=== PATIENT | female | born 1990 | race Caucasian/White ===

== ENCOUNTER → 2018-10-18 | Outpatient (CLI) | payer OTHER ==
--- NOTE | 2018-10-18 16:48 | CT ---
EXAMINATION TYPE: CT sinus wo con DATE OF EXAM: 10/18/2018 COMPARISON: MRI brain July 18, 2011 HISTORY: Can't breathe through nose with patient changes and headaches per patient. Chronic sinusitis per order. CT DLP: 648 mGycm. Automated Exposure Control for Dose Reduction was Utilized. TECHNIQUE: CT scan of the sinuses is performed without contrast, axial images are obtained, coronal r eformatted images are also reviewed. FINDINGS: There is new moderate to severe lobulated mucosal thickening in the left maxillary sinus. N o suspicious opacification or air-fluid levels in remainder paranasal sinuses is present The ostiome atal complex is patent bilaterally on the coronal images. Nasal septum remains slightly deviated to l eft of midline unchanged from 2012 MRI Visualized portion of mastoid air cells show no abnormal opacification. The globes are intact bilate rally. Visualized portion of brain parenchyma is unremarkable. IMPRESSION: New from prior MRI moderate to severe chronic left maxillary sinus disease. No acute sin usitis is evident.
== END | disposition home or self-care (01) ==
LOC: RADCTMAIN 15:48
PROVIDERS: ATTEND Otolaryngology Facial Plastic Surgery
DX: J32.0 Chronic maxillary sinusitis (principal)
CPT/HCPCS: 70486

== ENCOUNTER 2018-11-15 14:05 | Emergency (ER) | payer OTHER ==
[2018-11-15] MEDS ORDERED: SERTRALINE 50 MG TAB PO STA (14:24)
[2018-11-15] MEDS ORDERED: LORazepam 2 MG/ML INJ IM STA (14:39)
--- NOTE | 2018-11-15 14:47 | ED ---
General Adult HPI - General Chief complaint: Psychiatric Symptoms Stated complaint: Withdrawls, Mental Health Time Seen by Provider: 11/15/18 14:15 Source: patient, RN notes reviewed Mode of arrival: wheelchair Limitations: no limitations - History of Present Illness Initial comments: 27-year-old female with a past psychological history of anxiety presents to the emergency department for a chief complaint of withdrawal. Patient states that she takes Zoloft daily for the past 3 years. States that she thought she had refills at the pharmacy but did not so she was unable to take her Zoloft Thursday and Thursday nights. Patient states the pharmacy did give her 2 on Thursday and now she has a refill waiting at the pharmacy today. However john whitaker thought her symptoms would go away after taking her Zoloft yesterday so presented to the emergency department today. Patient states she feels shaky and very anxious. States she did have some diarrhea yesterday as well. States she is also feeling suicidal but denies a plan. States she does not "want to " but needs this to stop. Patient has no other complaints at this time including shortness of breath, chest pain, abdominal pain, nausea or vomiting, headache, or visual changes. - Related Data Home Medications Medication Instructions Recorded Confirmed Prazosin HCl [Minipress] 2 mg PO HS 11/15/18 11/15/18 QUEtiapine [SEROquel] 25 mg PO HS 11/15/18 11/15/18 Sertraline [Zoloft] 150 mg PO HS 11/15/18 11/15/18 busPIRone HCL 15 mg PO BID 11/15/18 11/15/18 Allergies Allergy/AdvReac Type Severity Reaction Status Date / Time azithromycin Allergy Unknown passed out Verified 11/15/18 14:23 [From Zithromax Z-Eusebio] clarithromycin [From Biaxin] Allergy Unknown passed out Verified 11/15/18 14:23 hydromorphone HCl Allergy Unknown Rash/Hives Verified 11/15/18 14:23 [From Dilaudid] ibuprofen Allergy Unknown Nausea & Verified 11/15/18 14:23 Vomiting Sulfa (Sulfonamide Allergy Unknown Rash/Hives Verified 11/15/18 14:23 Antibiotics) Review of Systems ROS Statement: Those systems with pertinent positive or pertinent negative responses have been documented in the HPI. ROS Other: All systems not noted in ROS Statement are negative. Past Medical History Past Medical History: GERD/Reflux Additional Past Medical History / Comment(s): hernia, IBS, migraines History of Any Multi-Drug Resistant Organisms: None Reported Past Surgical History: Adenoidectomy, Cholecystectomy, Hernia Repair, Hysterecto my Additional Past Surgical History / Comment(s): myringotomy x 2 Past Anesthesia/Blood Transfusion Reactions: Motion Sickness, Postoperative Nausea & Vomiting (PONV) Additional Past Anesthesia/Blood Transfusion Reaction / Comment(s): "freaks out and has anxiety when waking up" Past Psychological History: Anxiety Smoking Status: Current every day smoker Past Alcohol Use History: None Reported Past Drug Use History: Marijuana General Exam Limitations: no limitations General appearance: alert, in no apparent distress Head exam: Present: atraumatic, normocephalic, normal inspection Eye exam: Present: normal appearance, PERRL, EOMI. Absent: scleral icterus, conjunctival injection, periorbital swelling ENT exam: Present: normal exam, mucous membranes moist Neck exam: Present: normal inspection, full ROM. Absent: tenderness, meningismus, lymphadenopathy Respiratory exam: Present: normal lung sounds bilaterally. Absent: respiratory distress, wheezes, rales, rhonchi, stridor Cardiovascular Exam: Present: regular rate, normal rhythm, normal heart sounds. Absent: systolic murmur, diastolic murmur, rubs, gallop, clicks GI/Abdominal exam: Present: soft, normal bowel sounds. Absent: distended, tenderness, guarding, rebound, rigid Neurological exam: Present: alert, oriented X3, CN II-XII intact Psychiatric exam: Present: anxious Course Vital Signs 11/15/18 14:08 Temperature 99.0 F Pulse Rate 95 Respiratory 16 Rate Blood Pressure 106/70 O2 Sat by Pulse 100 Oximetry Medical Decision Making - Medical Decision Making 27-year-old female presents for with tall symptoms from Zoloft including shakiness and diarrhea. Patient states she does have anxiety about this as well. Exam is unremarkable although patient does appear somewhat anxious. Patient was given Ativan, feeling much better at this time. Patient has Zoloft prescribed already at home so does not need a prescription for this. Patient was evaluated by EPS due to suicidal thoughts however as patient denies a plan and states she does not want to EPS does not feel she needs to be admitted. Patient does states she will follow-up with her psychiatrist and counselor tomorrow and continue taking her medications as directed. Patient will return here if she has any worsening symptoms. Denying suicidal thoughts on discharge. - Lab Data Lab Results 11/15/18 11/15/18 Range/Units 16:37 16:37 Urine HCG, Qual Not Detected (Not Detectd) Urine Opiates Screen Not Detected (NotDetected) Ur Oxycodone Screen Not Detected (NotDetected) Urine Methadone Screen Not Detected (NotDetected) Ur Propoxyphene Screen Not Detected (NotDetected) Ur Barbiturates Screen Not Detected (NotDetected) U Tricyclic Antidepress Not Detected (NotDetected) Ur Phencyclidine Scrn Not Detected (NotDetected) Ur Amphetamines Screen Not Detected (NotDetected) U Methamphetamines Scrn Not Detected (NotDetected) U Benzodiazepines Scrn Not Detected (NotDetected) Urine Cocaine Screen Not Detected (NotDetected) U Marijuana (THC) Screen Detected H (NotDetected) Disposition Clinical Impression: Reactive depression (situational) Disposition: HOME SELF-CARE Condition: Good Instructions (If sedation given, give patient instructions): Suicide Prevention (ED) Additional Instructions: Please continue taking your medications as directed. Follow-up with primary care and counselor tomorrow. Return here to the emergency department if you have any worsening symptoms. Is patient prescribed a controlled substance at d/c from ED?: No Referrals: Alondra Hill DO [Primary Care Provider] - 1-2 days Time of Disposition: 18:36
[2018-11-15 17:01] LABS: Amphetamine Screen,Urine Not Detected (NotDetected); Barbiturate Screen,Urine Not Detected (NotDetected); Benzodiazepines Screen,Urine Not Detected (NotDetected); Cocaine Screen,Urine Not Detected (NotDetected); Methadone Screen, Urine Not Detected (NotDetected); Opiate Screen,Urine Not Detected (NotDetected); Oxycodone Screen, Urine Not Detected (NotDetected); Phencyclidine Screen,Urine Not Detected (NotDetected); Tricyclic Antidepressant,Urine Not Detected (NotDetected); Urn Cannabinoid Scrn Detected (NotDetected)
[2018-11-15] MEDS ORDERED: ONDANSETRON ODT 4 MG TAB PO STA (17:09)
[2018-11-15 19:24] VITALS: BP 104/75; PULSE 72; RESP 18; TEMP 98.5
== END 2018-11-15 19:24 | disposition home or self-care (01) ==
LOC: EC 14:05
DX: F43.21 Adjustment disorder with depressed mood (principal); F41.9 Anxiety disorder, unspecified; F17.200 Nicotine dependence, unspecified, uncomplicated; Z79.899 Other long term (current) drug therapy; Z88.1 Allergy status to other antibiotic agents; Z88.2 Allergy status to sulfonamides; Z88.5 Allergy status to narcotic agent; Z88.6 Allergy status to analgesic agent
CPT/HCPCS: 82075; 81025; 80306; 99284; 96372; J2060

== ENCOUNTER 2019-08-24 12:33 | Emergency (ER) | payer OTHER ==
[2019-08-24] MEDS ORDERED: ONDANSETRON 4 MG/2 ML VIAL IVP STA (13:17)
[2019-08-24] MEDS ORDERED: SODIUM CHLORIDE 0.9% 1,000 ML IV STA ×2 (13:17)
[2019-08-24] MEDS ORDERED: KETOROLAC 30 MG/ML 1 ML VIAL IVP STA (13:18)
[2019-08-24] MEDS ORDERED: METOCLOPRAMIDE 5 MG/ML 2 ML VIAL IVP STA (14:00)
[2019-08-24 14:09] LABS: HCT 43.8 % (34.0-46.0); HGB 14.8 gm/dL (11.4-16.0); MCH 29.6 pg (25.0-35.0); MCHC 33.8 g/dL (31.0-37.0); MCV 87.7 fL (80.0-100.0); Mean Platelet Volume 8.3; Platelet Count 202 k/uL (150-450); RBC 4.99 m/uL (3.80-5.40); RDW 12.7 % (11.5-15.5); WBC 7.4 k/uL (3.8-10.6)
[2019-08-24 14:17] LABS: ALT 32 U/L (4-34); AST 43 U/L (14-36); African American GFR (CKD) >90 (>60 ml/min/1.73 sqM); Albumin 4.3 g/dL (3.5-5.0); Alkaline Phosphatase 130 U/L (38-126); Amylase 61 U/L (30-110); Anion Gap 8 mmol/L; Blood Urea Nitrogen 8 mg/dL (7-17); Calcium 9.1 mg/dL (8.4-10.2); Carbon Dioxide 28 mmol/L (22-30); Chloride 104 mmol/L (98-107); Glucose 120 mg/dL (74-99); Non-African American GFR(CKD) >90 (>60 ml/min/1.73 sqM); Sodium 140 mmol/L (137-145); Total Bilirubin 0.6 mg/dL (0.2-1.3); Total Protein 7.8 g/dL (6.3-8.2)
--- NOTE | 2019-08-24 14:18 | ED ---
General Adult HPI - General Chief complaint: Nausea/Vomiting/Diarrhea Stated complaint: vomiting Time Seen by Provider: 08/24/19 12:58 Source: patient, RN notes reviewed, old records reviewed Mode of arrival: ambulatory Limitations: no limitations - History of Present Illness Initial comments: Kailyn a 28-year-old female presents for his pharmacy of lower abdominal pain, nausea and vomiting for the past 3 days. She reports she's been feeling unwell for the past month. Patient states that she has history of total hysterectomy and cholecystectomy. Patient states that she's had no specific fevers or chills. She denies any associated chest pain shortness breath. She reports that the lower abdominal pain will radiate towards her back. She denies dysuria. - Related Data Home Medications Medication Instructions Recorded Confirmed Prazosin HCl [Minipress] 2 mg PO HS 11/15/18 11/15/18 QUEtiapine [SEROquel] 25 mg PO HS 11/15/18 11/15/18 Sertraline [Zoloft] 150 mg PO HS 11/15/18 11/15/18 busPIRone HCL 15 mg PO BID 11/15/18 11/15/18 Previous Rx's Medication Instructions Recorded Ketorolac [Toradol] 10 mg PO Q6HR #12 tab 08/24/19 Metoclopramide [Reglan] 10 mg PO ACHS #12 tab 08/24/19 Allergies Allergy/AdvReac Type Severity Reaction Status Date / Time azithromycin Allergy Unknown passed out Verified 08/24/19 12:52 [From Zithromax Z-Eusebio] clarithromycin [From Biaxin] Allergy Unknown passed out Verified 08/24/19 12:52 hydromorphone HCl Allergy Unknown Rash/Hives Verified 08/24/19 12:52 [From Dilaudid] ibuprofen Allergy Unknown Nausea & Verified 08/24/19 12:52 Vomiting Sulfa (Sulfonamide Allergy Unknown Rash/Hives Verified 08/24/19 12:52 Antibiotics) Review of Systems ROS Statement: Those systems with pertinent positive or pertinent negative responses have been documented in the HPI. ROS Other: All systems not noted in ROS Statement are negative. Past Medical History Past Medical History: GERD/Reflux Additional Past Medical History / Comment(s): hernia, IBS, migraines History of Any Multi-Drug Resistant Organisms: None Reported Past Surgical History: Adenoidectomy, Cholecystectomy, Hernia Repair, H ysterectomy Additional Past Surgical History / Comment(s): myringotomy x 2 Past Anesthesia/Blood Transfusion Reactions: Motion Sickness, Postoperative Nausea & Vomiting (PONV) Additional Past Anesthesia/Blood Transfusion Reaction / Comment(s): "freaks out and has anxiety when waking up" Past Psychological History: Anxiety Smoking Status: Current every day smoker Past Alcohol Use History: None Reported Past Drug Use History: Marijuana General Exam - General Exam Comments Initial Comments: 28-year-old female. Alert and oriented. Mild to moderate discomfort. Nauseous. Limitations: no limitations General appearance: alert, in no apparent distress Head exam: Present: atraumatic, normocephalic, normal inspection Eye exam: Present: normal appearance, PERRL, EOMI. Absent: scleral icterus, conjunctival injection, periorbital swelling ENT exam: Present: normal exam, mucous membranes moist Neck exam: Present: normal inspection Respiratory exam: Present: normal lung sounds bilaterally. Absent: respiratory distress, wheezes, rales, rhonchi, stridor Cardiovascular Exam: Present: regular rate, normal rhythm, normal heart sounds. Absent: systolic murmur, diastolic murmur, rubs, gallop, clicks GI/Abdominal exam: Present: soft, tenderness (Lower abdominal tenderness), normal bowel sounds. Absent: distended, guarding, rebound, rigid Extremities exam: Present: normal inspection, full ROM, normal capillary refill. Absent: tenderness, pedal edema, joint swelling, calf tenderness Back exam: Present: normal inspection Neurological exam: Present: alert, oriented X3, CN II-XII intact Psychiatric exam: Present: normal affect, normal mood Skin exam: Present: warm, dry, intact, normal color. Absent: rash Course Vital Signs 08/24/19 08/24/19 12:49 14:50 Temperature 98.9 F 98.4 F Pulse Rate 98 79 Respiratory 20 16 Rate Blood Pressure 102/70 96/54 O2 Sat by Pulse 99 99 Oximetry Medical Decision Making - Medical Decision Making 28-year-old female presenting with lower abdominal pain. Patient comes in the rain towards her back. This time labs are reviewed. She had some mild trace injury. Blood work was otherwise unremarkable. CT abdomen and pelvis was completed and shows no sign of retained or obstructing stone. She does have bilateral renal stones. There is also some evidence of mild colitis. Discussed computed tomography scan findings and blood work Patient. Discussed she could possibly pass a stone at this time. I discussed Patient should've clear liquid diet, taking Motrin Tylenol for pain. Discussed return parameters and close PCP follow-up. All questions were answered. - Lab Data Result diagrams: 08/24/19 13:53 08/24/19 13:53 Lab Results 08/24/19 08/24/19 08/24/19 Range/Units 13:53 13:53 13:53 WBC 7.4 (3.8-10.6) k/uL RBC 4.99 (3.80-5.40) m/uL Hgb 14.8 (11.4-16.0) gm/dL Hct 43.8 (34.0-46.0) % MCV 87.7 (80.0-100.0) fL MCH 29.6 (25.0-35.0) pg MCHC 33.8 (31.0-37.0) g/dL RDW 12.7 (11.5-15.5) % Plt Count 202 (150-450) k/uL Neutrophils % (Manual) 64 % Lymphocytes % (Manual) 23 % Monocytes % (Manual) 10 % Eosinophils % (Manual) 3 % Neutrophils # (Manual) 4.74 (1.3-7.7) k/uL Lymphocytes # (Manual) 1.70 (1.0-4.8) k/uL Monocytes # (Manual) 0.74 (0-1.0) k/uL Eosinophils # (Manual) 0.22 (0-0.7) k/uL Nucleated RBCs 0 (0-0) /100 WBC Manual Slide Review Performed RBC Morphology Normal Sodium 140 (137-145) mmol/L Potassium 4.0 (3.5-5.1) mmol/L Chloride 104 (98-107) mmol/L Carbon Dioxide 28 (22-30) mmol/L Anion Gap 8 mmol/L BUN 8 (7-17) mg/dL Creatinine 0.73 (0.52-1.04) mg/dL Est GFR (CKD-EPI)AfAm >90 (>60 ml/min/1.73 sqM) Est GFR (CKD-EPI)NonAf >90 (>60 ml/min/1.73 sqM) Glucose 120 H (74-99) mg/dL Calcium 9.1 (8.4-10.2) mg/dL Total Bilirubin 0.6 (0.2-1.3) mg/dL AST 43 H (14-36) U/L ALT 32 (4-34) U/L Alkaline Phosphatase 130 H (38-126) U/L Total Protein 7.8 (6.3-8.2) g/dL Albumin 4.3 (3.5-5.0) g/dL Amylase 61 (30-110) U/L Lipase 87 (23-300) U/L Urine Color Urine Appearance (Clear) Urine pH (5.0-8.0) Ur Specific [place] (1.001-1.035) Urine Protein (Negative) Ur Protein Confirm Urine Glucose (UA) (Negative) Urine Ketones (Negative) Urine Blood (Negative) Urine Nitrite (Negative) Urine Bilirubin (Negative) Ur Bilirubin Confirm Urine Urobilinogen (<2.0) mg/dL Ur Leukocyte Esterase (Negative) Amorphous Sediment (None) /hpf Urine Mucus (None) /hpf Influenza Type A RNA Not Detected (Not Detectd) Influenza Type B (PCR) Not Detected (Not Detectd) 08/24/19 Range/Units 14:59 WBC (3.8-10.6) k/uL RBC (3.80-5.40) m/uL Hgb (11.4-16.0) gm/dL Hct (34.0-46.0) % MCV (80.0-100.0) fL MCH (25.0-35.0) pg MCHC (31.0-37.0) g/dL RDW (11.5-15.5) % Plt Count (150-450) k/uL Neutrophils % (Manual) % Lymphocytes % (Manual) % Monocytes % (Manual) % Eosinophils % (Manual) % Neutrophils # (Manual) (1.3-7.7) k/uL Lymphocytes # (Manual) (1.0-4.8) k/uL Monocytes # (Manual) (0-1.0) k/uL Eosinophils # (Manual) (0-0.7) k/uL Nucleated RBCs (0-0) /100 WBC Manual Slide Review RBC Morphology Sodium (137-145) mmol/L Potassium (3.5-5.1) mmol/L Chloride (98-107) mmol/L Carbon Dioxide (22-30) mmol/L Anion Gap mmol/L BUN (7-17) mg/dL Creatinine (0.52-1.04) mg/dL Est GFR (CKD-EPI)AfAm (>60 ml/min/1.73 sqM) Est GFR (CKD-EPI)NonAf (>60 ml/min/1.73 sqM) Glucose (74-99) mg/dL Calcium (8.4-10.2) mg/dL Total Bilirubin (0.2-1.3) mg/dL AST (14-36) U/L ALT (4-34) U/L Alkaline Phosphatase (38-126) U/L Total Protein (6.3-8.2) g/dL Albumin (3.5-5.0) g/dL Amylase (30-110) U/L Lipase (23-300) U/L Urine Color Yellow Urine Appearance Cloudy H (Clear) Urine pH 6.0 (5.0-8.0) Ur Specific [place] 1.025 (1.001-1.035) Urine Protein 1+ H (Negative) Ur Protein Confirm [employer]FFER Urine Glucose (UA) Negative (Negative) Urine Ketones Negative (Negative) Urine Blood Trace H (Negative) Urine Nitrite Negative (Negative) Urine Bilirubin 1+ H (Negative) Ur Bilirubin Confirm [employer] Urine Urobilinogen 0.2 (<2.0) mg/dL Ur Leukocyte Esterase Negative (Negative) Amorphous Sediment Moderate H (None) /hpf Urine Mucus Many H (None) /hpf Influenza Type A RNA (Not Detectd) Influenza Type B (PCR) (Not Detectd) - Radiology Data Radiology results: report reviewed CT showed nonobstructing bilateral renal colliculi. Mild inflammatory changes of the ascending colon that could relate to an mild nonspecific colitis. Disposition Clinical Impression: Colitis, Renal stone Disposition: HOME SELF-CARE Condition: Good Instructions (If sedation given, give patient instructions): Colitis (ED), Kidney Stones (ED) Additional Instructions: Please use medication as discussed. Please follow up with family doctor if symptoms have not improved over the next two days. Please return to the emergency room if your symptoms increase or worsen or for any other concerns. Prescriptions: Metoclopramide [Reglan] 10 mg PO ACHS #12 tab Ketorolac [Toradol] 10 mg PO Q6HR #12 tab Is patient prescribed a controlled substance at d/c from ED?: No Referrals: Alondra Hill DO [Primary Care Provider] - 1-2 days Time of Disposition: 17:14
--- NOTE | 2019-08-24 14:27 | XR ---
KUB HISTORY: Nausea and vomiting and low back pain Frontal KUB submitted and correlated to prior exam 11/07/2010 Surgical clips are present in the right upper quadrant and there is a clip in the left pelvis. Lung b ases are clear. There is no evident bowel obstruction or pneumoperitoneum. No pathologic calcificatio n, suspect phleboliths in the pelvis. IMPRESSION: Nonobstructive bowel gas pattern.
[2019-08-24 14:51] VITALS: RESP 16
[2019-08-24 15:28] LABS: Eosinophils # (M) 0.22 k/uL (0-0.7); Monocytes # (M) 0.74 k/uL (0-1.0); Neutrophils # (M) 4.74 k/uL (1.3-7.7); Neutrophils % (M) 64 %; Nucleated Red Blood Cells 0 /100 WBC (0-0); Total Cells Counted 100
[2019-08-24 15:53] LABS: Amorphous Sediment,Urine Moderate /hpf; Mucus,Urine Many /hpf
[2019-08-24 15:57] LABS: Appearance,Urine Cloudy (Clear); Bilirubin,Urine 1+ (Negative); Color,Urine Yellow; Glucose,Urine (UA) Negative (Negative); Ketones,Urine Negative (Negative); Protein,Urine 1+ (Negative); Specific Gravity,Urine 1.025 (1.001-1.035)
[2019-08-24 15:58] LABS: Blood,Urine Trace (Negative); Leukocyte Esterase,Urine Negative (Negative); Nitrite,Urine Negative (Negative); Urobilinogen,Urine 0.2 mg/dL (<2.0)
[2019-08-24] MEDS ORDERED: MORPHINE SULFATE 4 MG/ML SYRINGE IVP STA (16:09)
[2019-08-24] MEDS: SODIUM CHLORIDE 0.9% 1,000 ML IV SCH ×2 (16:21→17:38)
--- NOTE | 2019-08-24 16:52 | CT ---
EXAMINATION TYPE: CT abdomen pelvis wo con DATE OF EXAM: 08/24/2019 COMPARISON: None HISTORY: Nausea, vomiting, right flank pain CT DLP: 452.7 mGycm Automated exposure control for dose reduction was used. Multiple axial sections were obtained from the diaphragm to the floor the pelvis without contrast. Lung bases are clear of infiltrate. There is no pleural effusion. There is mild subsegmental atelecta sis left lung base. Heart size is normal. Spleen is top normal in size and measures 13 cm. Liver shows no focal defect. There are clips from ch olecystectomy. Stomach appears normal. There is no pancreatic mass. There is no adrenal mass. Kidneys have normal size. There is 2 mm calculus lower pole right kidney. T here are 1 mm calculi in the left kidney. The ureters are not dilated. There is no definite hydroneph rosis. There is no retroperitoneal adenopathy. Bladder distends smoothly. There is no free fluid in t he pelvis. There is no inguinal hernia. There is hysterectomy. There is surgical clip in the right lo wer quadrant is probably from appendectomy. Appendix is not seen. There is minimal fat stranding around the posterior aspect of the ascending colon near the hepatic fl exure. There is mild wall thickening of the ascending colon. Cecum appears normal. There is no eviden ce of a bowel obstruction. There is no evidence of free air. There is no ascites. Lumbar vertebra hav e normal spacing and alignment. Bony pelvis is intact. IMPRESSION: Nonobstructing bilateral renal calculi. Mild inflammatory changes of the ascending colon that could r elate to some mild nonspecific colitis.
[2019-08-24 17:45] VITALS: BP 117/70; PULSE 75; TEMP 98.6
== END 2019-08-24 17:45 | disposition home or self-care (01) ==
LOC: EC 12:33
DX: N20.0 Calculus of kidney (principal); K52.9 Noninfective gastroenteritis and colitis, unspecified; F41.9 Anxiety disorder, unspecified; F17.200 Nicotine dependence, unspecified, uncomplicated; Z79.899 Other long term (current) drug therapy; Z88.1 Allergy status to other antibiotic agents; Z88.2 Allergy status to sulfonamides; Z88.5 Allergy status to narcotic agent; Z88.6 Allergy status to analgesic agent; Z90.49 Acquired absence of other specified parts of digestive tract; Z90.89 Acquired absence of other organs
CPT/HCPCS: 36415; 80053; 82150; 83690; 85025; 81001; 87502; 74018; 74176; 99285; 96374; 96375 ×2; 96361 ×2; J2270; J2765; J1885

== ENCOUNTER 2019-08-26 10:54 | Observation (INO) | payer OTHER ==
[2019-08-26] MEDS ORDERED: MORPHINE SULFATE 4 MG/ML SYRINGE IV STA (11:21)
[2019-08-26] MEDS ORDERED: ONDANSETRON 4 MG/2 ML VIAL IVP STA (11:21)
[2019-08-26] MEDS ORDERED: SODIUM CHLORIDE 0.9% 1,000 ML IV STA (11:21)
[2019-08-26] MEDS ORDERED: diphenhydrAMINE 50 MG/ML 1 ML VIAL IVP STA (11:22)
--- NOTE | 2019-08-26 11:44 | ED ---
General Adult HPI - General Chief complaint: Nausea/Vomiting/Diarrhea Stated complaint: vomiting, colitis Time Seen by Provider: 08/26/19 11:14 Source: patient, RN notes reviewed, old records reviewed Mode of arrival: ambulatory Limitations: no limitations - History of Present Illness Initial comments: 38-year-old female presenting for evaluation of abdominal cramping, nausea vomiting and diarrhea. Symptoms have been present for almost 3 days. She was seen in the emergency department 2 days ago with similar symptoms. Her symptoms have failed to improve with symptomatic treatment at home. She's had persistent vomiting and several episodes daily as well as diarrhea. No bloody needed to vomit or diarrhea. She's had subjective fever and chills as well as cramping abdominal pain and pain in the epigastrium and right upper quadrant. She has p revious surgical history of cholecystectomy, and hysterectomy. - Related Data Home Medications Medication Instructions Recorded Confirmed Prazosin HCl [Minipress] 2 mg PO HS 11/15/18 11/15/18 QUEtiapine [SEROquel] 25 mg PO HS 11/15/18 11/15/18 Sertraline [Zoloft] 150 mg PO HS 11/15/18 11/15/18 busPIRone HCL 15 mg PO BID 11/15/18 11/15/18 Previous Rx's Medication Instructions Recorded Ketorolac [Toradol] 10 mg PO Q6HR #12 tab 08/24/19 Metoclopramide [Reglan] 10 mg PO ACHS #12 tab 08/24/19 Allergies Allergy/AdvReac Type Severity Reaction Status Date / Time azithromycin Allergy Unknown passed out Verified 08/26/19 11:05 [From Zithromax Z-Eusebio] clarithromycin [From Biaxin] Allergy Unknown passed out Verified 08/26/19 11:05 hydromorphone HCl Allergy Unknown Rash/Hives Verified 08/26/19 11:05 [From Dilaudid] ibuprofen Allergy Unknown Nausea & Verified 08/26/19 11:05 Vomiting Sulfa (Sulfonamide Allergy Unknown Rash/Hives Verified 08/26/19 11:05 Antibiotics) Review of Systems ROS Statement: Those systems with pertinent positive or pertinent negative responses have been documented in the HPI. ROS Other: All systems not noted in ROS Statement are negative. Past Medical History Past Medical History: GERD/Reflux Additional Past Medical History / Comment(s): hernia, IBS, migraines History of Any Multi-Drug Resistant Organisms: None Reported Past Surgical History: Adenoidectomy, Cholecystectomy, Hernia Repair, Hysterectomy Additional Past Surgical History / Comment(s): myringotomy x 2 Past Anesthesia/Blood Transfusion Reactions: Motion Sickness, Postoperative Nausea & Vomiting (PONV) Additional Past Anesthesia/Blood Transfusion Reaction / Comment(s): "freaks out and has anxiety when waking up" Past Psychological History: Anxiety Smoking Status: Current every day smoker Past Alcohol Use History: None Reported Past Drug Use History: Marijuana General Exam Limitations: no limitations General appearance: alert, in no apparent distress Head exam: Present: atraumatic, normocephalic Eye exam: Present: normal appearance, PERRL ENT exam: Present: normal exam Neck exam: Present: normal inspection. Absent: tenderness, meningismus Respiratory exam: Present: normal lung sounds bilaterally. Absent: respiratory distress, wheezes Cardiovascular Exam: Present: regular rate, normal rhythm GI/Abdominal exam: Present: soft, tenderness (Minimal right upper quadrant tenderness). Absent: distended, guarding, rebound Extremities exam: Present: normal inspection, normal capillary refill. Absent: pedal edema, calf tenderness Neurological exam: Present: alert, oriented X3, CN II-XII intact. Absent: motor sensory deficit Psychiatric exam: Present: normal affect, normal mood Skin exam: Present: warm, dry, intact. Absent: cyanosis, diaphoretic Course Vital Signs 08/26/19 11:05 Temperature 99.4 F Pulse Rate 88 Respiratory 18 Rate Blood Pressure 96/68 O2 Sat by Pulse 99 Oximetry Medical Decision Making - Medical Decision Making Patient continues to be symptomatic, nausea vomiting with diarrhea while the emergency department. She is 4+ ketones on urinalysis consistent with dehydration. She has transaminitis and elevation in alkaline phosphatase. Her common bile duct is within normal limits. She has an x-ray which is negative for obstruction or intraperitoneal free air. She will be admitted for IV hydration secondary control. Case is discussed with the admitting physician Dr. Faulkner. - Lab Data Result diagrams: 08/26/19 12:00 08/26/19 12:00 Lab Results 08/26/19 08/26/19 08/26/19 Range/Units 12:00 12:00 14:34 WBC 6.6 (3.8-10.6) k/uL RBC 4.44 (3.80-5.40) m/uL Hgb 13.3 (11.4-16.0) gm/dL Hct 38.3 (34.0-46.0) % MCV 86.3 (80.0-100.0) fL MCH 30.0 (25.0-35.0) pg MCHC 34.7 (31.0-37.0) g/dL RDW 12.7 (11.5-15.5) % Plt Count 189 (150-450) k/uL Neutrophils % (Manual) 57 % Band Neutrophils % 6 % Lymphocytes % (Manual) 24 % Monocytes % (Manual) 11 % Eosinophils % (Manual) 2 % Neutrophils # (Manual) 4.10 (1.3-7.7) k/uL Lymphocytes # (Manual) 1.58 (1.0-4.8) k/uL Monocytes # (Manual) 0.73 (0-1.0) k/uL Eosinophils # (Manual) 0.13 (0-0.7) k/uL Nucleated RBCs 0 (0-0) /100 WBC Manual Slide Review Performed Sodium 137 (137-145) mmol/L Potassium 3.5 (3.5-5.1) mmol/L Chloride 105 (98-107) mmol/L Carbon Dioxide 21 L (22-30) mmol/L Anion Gap 11 mmol/L BUN 9 (7-17) mg/dL Creatinine 0.65 (0.52-1.04) mg/dL Est GFR (CKD-EPI)AfAm >90 (>60 ml/min/1.73 sqM) Est GFR (CKD-EPI)NonAf >90 (>60 ml/min/1.73 sqM) Glucose 101 H (74-99) mg/dL Calcium 8.6 (8.4-10.2) mg/dL Total Bilirubin 1.0 (0.2-1.3) mg/dL AST 69 H (14-36) U/L ALT 83 H (4-34) U/L Alkaline Phosphatase 188 H (38-126) U/L Total Protein 7.1 (6.3-8.2) g/dL Albumin 3.8 (3.5-5.0) g/dL Lipase 82 (23-300) U/L Urine Color Yellow Urine Appearance Clear (Clear) Urine pH 6.0 (5.0-8.0) Ur Specific Elsie 1.021 (1.001-1.035) Urine Protein Trace H (Negative) Urine Glucose (UA) Negative (Negative) Urine Ketones 4+ H (Negative) Urine Blood Small H (Negative) Urine Nitrite Negative (Negative) Urine Bilirubin Negative (Negative) Urine Urobilinogen 3.0 (<2.0) mg/dL Ur Leukocyte Esterase Negative (Negative) Urine RBC 3 (0-5) /hpf Urine WBC 1 (0-5) /hpf Ur Squamous Epith Cells 1 (0-4) /hpf Urine Bacteria Rare H (None) /hpf Urine Mucus Many H (None) /hpf Hepatitis A IgM Ab 08/26/19 Range/Units 14:44 WBC (3.8-10.6) k/uL RBC (3.80-5.40) m/uL Hgb (11.4-16.0) gm/dL Hct (34.0-46.0) % MCV (80.0-100.0) fL MCH (25.0-35.0) pg MCHC (31.0-37.0) g/dL RDW (11.5-15.5) % Plt Count (150-450) k/uL Neutrophils % (Manual) % Band Neutrophils % % Lymphocytes % (Manual) % Monocytes % (Manual) % Eosinophils % (Manual) % Neutrophils # (Manual) (1.3-7.7) k/uL Lymphocytes # (Manual) (1.0-4.8) k/uL Monocytes # (Manual) (0-1.0) k/uL Eosinophils # (Manual) (0-0.7) k/uL Nucleated RBCs (0-0) /100 WBC Manual Slide Review Sodium (137-145) mmol/L Potassium (3.5-5.1) mmol/L Chloride (98-107) mmol/L Carbon Dioxide (22-30) mmol/L Anion Gap mmol/L BUN (7-17) mg/dL Creatinine (0.52-1.04) mg/dL Est GFR (CKD-EPI)AfAm (>60 ml/min/1.73 sqM) Est GFR (CKD-EPI)NonAf (>60 ml/min/1.73 sqM) Glucose (74-99) mg/dL Calcium (8.4-10.2) mg/dL Total Bilirubin (0.2-1.3) mg/dL AST (14-36) U/L ALT (4-34) U/L Alkaline Phosphatase (38-126) U/L Total Protein (6.3-8.2) g/dL Albumin (3.5-5.0) g/dL Lipase (23-300) U/L Urine Color Urine Appearance (Clear) Urine pH (5.0-8.0) Ur Specific Elsie (1.001-1.035) Urine Protein (Negative) Urine Glucose (UA) (Negative) Urine Ketones (Negative) Urine Blood (Negative) Urine Nitrite (Negative) Urine Bilirubin (Negative) Urine Urobilinogen (<2.0) mg/dL Ur Leukocyte Esterase (Negative) Urine RBC (0-5) /hpf Urine WBC (0-5) /hpf Ur Squamous Epith Cells (0-4) /hpf Urine Bacteria (None) /hpf Urine Mucus (None) /hpf Hepatitis A IgM Ab NEGATIVE Disposition Clinical Impression: Dehydration, Nausea vomiting and diarrhea Disposition: ADMITTED IP TO THIS [facility] Condition: Stable Is patient prescribed a controlled substance at d/c from ED?: No Referrals: Alondra Hill DO [Primary Care Provider] - 1-2 days Decision to Admit Reason: Admit from EC Decision Date: 08/26/19 Decision Time: 15:54
--- NOTE | 2019-08-26 12:19 | XR ---
KUB HISTORY: Pain, nausea and vomiting and diarrhea For a KUB submitted on 2 images and correlated prior KUB dated 08/24/2019, CT 08/24/2019 Surgical clips are present right upper quadrant. There is no evident bowel obstruction or pneumoperit oneum. Slight spinal curvature is present. Surgical clips again noted in the pelvis. Patient's known renal calculi not seen on plain film. IMPRESSION: No acute abnormality.
[2019-08-26 12:20] LABS: HCT 38.3 % (34.0-46.0); HGB 13.3 gm/dL (11.4-16.0); MCHC 34.7 g/dL (31.0-37.0); MCV 86.3 fL (80.0-100.0); Mean Platelet Volume 8.3; Platelet Count 189 k/uL (150-450); RBC 4.44 m/uL (3.80-5.40); RDW 12.7 % (11.5-15.5); WBC 6.6 k/uL (3.8-10.6)
[2019-08-26 12:27] LABS: ALT 83 U/L (4-34); AST 69 U/L (14-36); African American GFR (CKD) >90 (>60 ml/min/1.73 sqM); Albumin 3.8 g/dL (3.5-5.0); Alkaline Phosphatase 188 U/L (38-126); Anion Gap 11 mmol/L; Blood Urea Nitrogen 9 mg/dL (7-17); Calcium 8.6 mg/dL (8.4-10.2); Carbon Dioxide 21 mmol/L (22-30); Chloride 105 mmol/L (98-107); Glucose 101 mg/dL (74-99); Non-African American GFR(CKD) >90 (>60 ml/min/1.73 sqM); Potassium 3.5 mmol/L (3.5-5.1); Sodium 137 mmol/L (137-145); Total Protein 7.1 g/dL (6.3-8.2)
[2019-08-26 12:37] LABS: Band Neutrophils % 6 %; Eosinophils # (M) 0.13 k/uL (0-0.7); Lymphocytes # (M) 1.58 k/uL (1.0-4.8); Monocytes # (M) 0.73 k/uL (0-1.0); Neutrophils % (M) 57 %; Nucleated Red Blood Cells 0 /100 WBC (0-0); Total Cells Counted 100
--- NOTE | 2019-08-26 13:53 | US ---
EXAMINATION TYPE: US gallbladder DATE OF EXAM: 08/26/2019 COMPARISON: CT 08/24/2019 CLINICAL HISTORY: Transaminitis, right upper quadrant pain. Gallbladder surgically absent. EXAM MEASUREMENTS: Liver Length: 17.2 cm Gallbladder Wall: Surgically absent CBD: 0.4 cm Right Kidney: 10.8 X 3.5 X 4.8 cm Pancreas: Obscured by bowel gas Liver: Measuring upper limits of normal Gallbladder: Surgically absent Evidence for sonographic Marin's sign: No CBD: wnl Right Kidney: No hydronephrosis or masses seen There is no ascites. IMPRESSION: Borderline enlarged liver. Some limitations to the exam.
[2019-08-26 14:47] LABS: Appearance,Urine Clear (Clear); Bacteria,Urine Rare /hpf; Bilirubin,Urine Negative (Negative); Blood,Urine Small (Negative); Color,Urine Yellow; Glucose,Urine (UA) Negative (Negative); Ketones,Urine 4+ (Negative); Leukocyte Esterase,Urine Negative (Negative); Mucus,Urine Many /hpf; Nitrite,Urine Negative (Negative); Protein,Urine Trace (Negative); RBC,Urine 3 /hpf (0-5); Specific Gravity,Urine 1.021 (1.001-1.035); Squamous Epithelial Cell,Urine 1 /hpf (0-4); WBC,Urine 1 /hpf (0-5)
[2019-08-26] MEDS ORDERED: SODIUM CHLORIDE 0.9% 500 ML 500 ML IV ONE (15:04)
[2019-08-26 15:39] LABS: Hepatitis A Antibody IgM NEGATIVE
[2019-08-26] MEDS ORDERED: ONDANSETRON 4 MG/2 ML VIAL IVP PRN (15:51)
[2019-08-26] MEDS ORDERED: NALOXONE 0.4 MG/ML 1 ML VIAL IV PRN (15:51)
[2019-08-26] MEDS: SODIUM CHLORIDE 0.9% 1,000 ML IV SCH ×2 (16:42→23:18)
--- NOTE | 2019-08-26 18:35 | P.HPIM ---
History of Present Illness H&P Date: 08/26/19 Chief Complaint: Repeated nausea and vomiting diarrhea 28-year-old female with PTSD, depression and anxiety Patient comes in today due to abdominal pain headache diffuse abdominal pain mostly over the right side no specific aggravating or alleviating factor rated as 7 out of 10 in severity associated with repeated nausea and vomiting nonbloody nonbilious and frequent diarrhea patient reported 15-20 bouts of diarrhea per day nonbloody no melena she describes it as yellow bright. Patient was here 2 days ago CAT scan of the abdomen suggested mild colitis of the ascending colon. Today ultrasound of the liver showed mildly enlarged liver. Patient has history of cholecystectomy and hysterectomy with bilateral oophorectomy due to risk of cancer in the family. She denies any recent travel or unsanitary food or drink. She denies any sick contacts she denies any other family members with similar symptoms Inpatient as she has been having this diarrhea for many years with many colonoscopies done in the past non-conclusive. She has been following up with GI. Never got answers about what's causing the symptoms. She reports subjective weight loss. Denies any fevers or chills denies any chest pain or trouble breathing. In the ED she was found to be dehydrated and admitted for refractory nausea vomiting and dehydration Review of Systems Pertinent positives as noted in HPI. All other systems were reviewed and are negative Past Medical History Past Medical History: GERD/Reflux Additional Past Medical History / Comment(s): hernia, IBS, migraines History of Any Multi-Drug Resistant Organisms: None Reported Past Surgical History: Adenoidectomy, Cholecystectomy, Hernia Repair, Hysterectomy Additional Past Surgical History / Comment(s): myringotomy x 2 Past Anesthesia/Blood Transfusion Reactions: Motion Sickness, Postoperative Nausea & Vomiting (PONV) Additional Past Anesthesia/Blood Transfusion Reaction / Comment(s): "freaks out and has anxiety when waking up" Past Psychological History: Anxiety Smoking Status: Current every day smoker Past Alcohol Use History: None Reported Past Drug Use History: Marijuana - Past Family History Mother Family Medical History: Hyperlipidemia, Hypertension, Myocardial Infarction ([place]) Father Family Medical History: Liver Disease Additional Family Medical History / Comment(s): low platelets. ETOH. Medications and Allergies Home Medications Medication Instructions Recorded Confirmed Type Prazosin HCl [Minipress] 2 mg PO HS 11/15/18 08/26/19 History QUEtiapine [SEROquel] 25 mg PO HS 11/15/18 08/26/19 History busPIRone HCL 22.5 mg PO HS 11/15/18 08/26/19 History Escitalopram Oxalate [Lexapro] 20 mg PO HS 08/26/19 08/26/19 History Ranitidine HCl [Zantac] 150 mg PO BID PRN 08/26/19 08/26/19 History Allergies Allergy/AdvReac Type Severity Reaction Status Date / Time azithromycin Allergy Unknown passed out Verified 08/26/19 17:41 [From Zithromax Z-Eusebio] clarithromycin [From Biaxin] Allergy Unknown passed out Verified 08/26/19 17:41 hydromorphone HCl Allergy Unknown Rash/Hives Verified 08/26/19 17:41 [From Dilaudid] ibuprofen Allergy Unknown Nausea & Verified 08/26/19 17:41 Vomiting Sulfa (Sulfonamide Allergy Unknown Rash/Hives Verified 08/26/19 17:41 Antibiotics) Physical Exam Vitals: Vital Signs Temp Pulse Resp BP Pulse Ox 08/26/19 16:38 99.8 F H 68 18 107/78 98 08/26/19 11:05 99.4 F 88 18 96/68 99 Intake and Output 08/26/19 08/26/19 08/26/19 06:59 14:59 22:59 Other: Weight 58.967 kg Constitutional: No acute distress, conversant, pleasant Eyes: Anicteric sclerae, moist conjunctiva, no lid-lag Pupils equal round reactive to light ENMT: NC/AT Oropharynx clear, no erythema, exudates Neck: Supple, FROM, no masses, or JVD No carotid bruits No thyromegaly Lungs: Clear to auscultation Clear to percussion Normal respiratory effort, no accessory muscle use Cardiovascular: Heart regular in rate and rhythm, No murmurs, gallops, or rubs No peripheral edema Abdominal: Soft Diffuse tenderness to palpation, no guarding, rebound or rigidity Abdomen moving with respiration Normoactive bowel sounds No hepatomegaly, No splenomegaly No palpable mass No abdominal wall hernia noted Skin: Normal temperature, tone, texture, turgor No induration No subcutaneous nodules No rash, lesions No ulcers Extremities: No digital cyanosis No clubbing Pedal pulses intact and symmetrical Radial pulses intact and symmetrical No calf tenderness Psychiatric: Alert and oriented to person, place and time Appropriate affect fair judgement Neuro Muscles Strength 5/5 in all 4 extremities Sensation to light touch grossly present throughout Cranial nerves II-XII grossly intact No focal sensory deficits Lymphatics: no palpable cervical or supraclavicular , or inguinal lymph nodes Results CBC & Chem 7: 08/26/19 12:00 08/26/19 12:00 Labs: Abnormal Lab Results - Last 24 Hours (Table) 08/26/19 08/26/19 Range/Units 12:00 14:34 Carbon Dioxide 21 L (22-30) mmol/L Glucose 101 H (74-99) mg/dL AST 69 H (14-36) U/L ALT 83 H (4-34) U/L Alkaline Phosphatase 188 H (38-126) U/L Urine Protein Trace H (Negative) Urine Ketones 4+ H (Negative) Urine Blood Small H (Negative) Urine Bacteria Rare H (None) /hpf Urine Mucus Many H (None) /hpf Assessment and Plan Assessment: 28-year-old female with chronic diarrhea, PTSD, depression and anxiety Patient comes in due to refractory nausea vomiting and repeated diarrhea with abdominal pain. Admitted due to dehydration under observation with anticipated length of stay less than two midnight Plan: Chronic diarrhea Refractory nausea vomiting Abdominal pain Dehydration Plan Symptomatic control Possible mild colitis IV fluid hydration Consider outpatient follow-up with GI GI consultation CHECK thyroid function check C diff GERD maalox PPI DVT prophylaxis heparin subcu 3 times a day CODE STATUS:full code Discussed with: Patient, ER, RN Anticipated length of stay < than [address]: home A total of 60 minutes was spent on the care of this complex patient more than 50% of the time was spent in counseling and care coordination.
[2019-08-26] MEDS ORDERED: MAG HYDROX/AL HYDROX/SIMETH 30 ML CUP PO PRN (18:36)
[2019-08-26] MEDS ORDERED: MORPHINE SULFATE 4 MG/ML SYRINGE IVP PRN (18:36)
[2019-08-26] MEDS: PANTOPRAZOLE 40 MG TABLET PO SCH (19:49)
[2019-08-26] MEDS: HEPARIN SODIUM,PORCINE 5,000 UNIT/ML 1 ML VIAL SQ SCH (23:11)
[2019-08-27 02:52] LABS: Hepatitis B Core IgM Non-Reactive (Non-Reactive); Hepatitis B Surface Antigen Non-Reactive (Non-Reactive); Hepatitis C IgG Antibody Non-Reactive (Non-Reactive)
[2019-08-27] MEDS: PANTOPRAZOLE 40 MG TABLET PO SCH ×2 (07:37→16:12)
[2019-08-27] MEDS: HEPARIN SODIUM,PORCINE 5,000 UNIT/ML 1 ML VIAL SQ SCH ×2 (07:38→14:41)
[2019-08-27] MEDS: SODIUM CHLORIDE 0.9% 1,000 ML IV SCH ×2 (07:38→14:55)
[2019-08-27 09:11] LABS: African American GFR (CKD) >90 (>60 ml/min/1.73 sqM); Anion Gap 9 mmol/L; Blood Urea Nitrogen 5 mg/dL (7-17); Calcium 7.7 mg/dL (8.4-10.2); Carbon Dioxide 20 mmol/L (22-30); Chloride 109 mmol/L (98-107); Glucose 85 mg/dL (74-99); Non-African American GFR(CKD) >90 (>60 ml/min/1.73 sqM); Potassium 3.5 mmol/L (3.5-5.1); Sodium 138 mmol/L (137-145)
--- NOTE | 2019-08-27 09:49 | CONS ---
CONSULTATION DATE OF DICTATION: 08/27/2019 REASON FOR CONSULTATION: Acute onset of nausea, vomiting and diarrhea of 3 days' duration. HISTORY OF PRESENT ILLNESS: The patient is a 28-year-old pleasant white female admitted to the hospital with acute onset of diffuse abdominal pain mostly in the lower abdominal area, crampy in nature, associated with severe nausea, vomiting and diarrhea for the last 3 days' duration. She has at least 10-15 episodes of emesis and about 10-15 episodes of loose watery diarrhea with no bleeding. Symptoms started acutely. She never had these symptoms in the past. She came into the emergency room 2 days ago. She had a CT of the abdomen pelvis done that showed some thickening of the ascending colon suspicious for mild colitis. She was discharged home following hydration. She came back yesterday with the same symptoms and was hence admitted to the hospital for further evaluation. Since being in the hospital she has been receiving antiemetics and IV hydration and feeling much better. She had no episodes of emesis or diarrhea today. The last episode of emesis was yesterday evening. She denies any fever, chills, night sweats. She has no recent travel history. No new medications that were started recently and denies any antibiotic use. PAST MEDICAL HISTORY: Significant for anxiety, depression, gastroesophageal reflux disease, migraines, irritable bowel syndrome. PAST SURGICAL HISTORY: Adenoidectomy, cholecystectomy, hernia repair, hysterectomy, myringotomy. MEDICATIONS: Medications at home include Minipress, Seroquel, buspirone, Lexapro, Zantac. ALLERGIES: Z-CYNTHIA, DILAUDID, BIAXIN, SULFA, IBUPROFEN. SOCIAL HISTORY: Chronic smoker. No alcohol use. FAMILY HISTORY: Father chronic liver disease. Mother coronary artery disease, hypertension and hyperlipidemia. REVIEW OF SYSTEMS: CARDIOPULMONARY: No chest pain or shortness of breath. GENITOURINARY: No dysuria or hematuria. MUSCULOSKELETAL: Unremarkable. SKIN: Unremarkable. ENDOCRINE: Unremarkable. PSYCHIATRIC: Unremarkable other than anxiety and depression. NEUROLOGY: History of migraines. ENT/VISION: Unremarkable. CONSTITUTIONAL: No recent weight loss. No fever, chills, night sweats. PHYSICAL EXAMINATION: Blood pressure is 94/59, temperature 97, pulse rate 73. HEENT examination unremarkable. Conjunctivae pink. Sclerae anicteric. Oral cavity no lesions. NECK: No JVD or lymph node enlargement. CHEST: Clear to auscultation. HEART: Regular rate and rhythm. ABDOMEN: Soft. Bowel sounds are positive. No organomegaly. EXTREMITIES: No pedal edema. SKIN: No rashes. NEUROLOGIC: Alert and oriented x3. No focal deficits. LABS: WBC 7.4, hemoglobin 14.8, platelets normal. Basic metabolic panel is within normal limits. AST and ALT are 43 and 32, respectively, alkaline phosphatase 130. Yesterday AST was 69, ALT 83, alkaline phosphatase 188. Hepatitis serologies for A, B and C are negative. Influenza A and B are negative. IMPRESSION: 1. This is a lady who presented to the hospital with acute onset of severe abdominal pain associated with nausea, vomiting, diarrhea that started 3 days ago. Most likely we are dealing with a viral gastroenteritis which appears to be self- resolving. She is presently on antiemetics and IV hydration and her symptoms are significantly improved. She has had no episodes of emesis in the last 12 hours and diarrhea has almost resolved. In fact, she had no bowel movements for the last 12 hours. 2. Mild elevation of serum transaminases; appears nonspecific in nature. Hepatitis serologies for A, B and C are negative. Partly it could be based on medications, but at this time we will monitor LFTs on a close basis. RECOMMENDATIONS: 1. Advance diet as tolerated. 2. Antiemetics as needed. 3. If she has recurrent diarrhea, she can use Imodium as needed. 4. If she is able to tolerate diet well, she can be discharged home later today or tomorrow with outpatient followup as needed. Thank you for this consultation. JEAN PIERRE / DEANAN: [id number] /
[2019-08-27] MEDS ORDERED: FAMOTIDINE 20 MG TAB PO PRN (10:04)
[2019-08-27] MEDS ORDERED: HYDROcodone/APAP 5-325MG 1 EACH TAB PO PRN (10:05)
[2019-08-27 10:25] LABS: HCT 33.5 % (34.0-46.0); HGB 11.3 gm/dL (11.4-16.0); MCHC 33.7 g/dL (31.0-37.0); Mean Platelet Volume 8.4; Platelet Count 129 k/uL (150-450); RBC 3.77 m/uL (3.80-5.40); RDW 12.8 % (11.5-15.5); WBC 4.7 k/uL (3.8-10.6)
[2019-08-27 14:32] VITALS: BP 104/67; PULSE 54; RESP 18; TEMP 97.9
--- NOTE | 2019-08-27 15:48 | P.DS ---
Providers Date of admission: 08/26/19 15:51 Expected date of discharge: 08/27/19 Attending physician: Wale Wagoner MD Consults: 08/26/19 18:35 Consult Physician Routine Consulting Provider: Kumar Ornelas Consult Reason/Comments: chronic diarrhea , elevated liver enzy Do you want consulting provider notified?: Yes Primary care physician: Alondra Hill Hospital Course: Discharge Diagnosis: Acute viral gastroenteritis Intractable abdominal pain Mild transaminitis, negative hepatitis serologies GERD Tobacco abuse Hospital Course: Patient is a 28-year-old female with a past medical history of postherpetic stressed with her, GERD, depression, and anxiety who presented to the emergency department with complaint of abdominal pain 7 out of 10 associated with nausea and diarrhea. She had been in the ER approximately 2 days prior and had a computed tomography scan of abdomen and pelvis done which showed some colitis of the ascending colon. Ultrasound of the liver showed a mildly enlarged liver. KUB showed no acute abnormality. She was given a clear liquid diet, antiemetics, and was admitted for further monitoring. She was seen by GI who felt her symptoms were consistent with viral gastroenteritis and agreed with IV hydration and discharge home. Due to her enlarged liver hepatitis serology was checked which was negative. She was able to tolerate a diet and her pain was well-controlled on oral pain medications. She'll follow up with Dr. Wick next week. Patient seen and examined at bedside. Feeling much better than yesterday. Abdominal pain is improved. When over 12 hours without bowel movements. Tolerating oral diet. Vital signs reviewed and stable. General: non toxic, no distress, appears at stated age Derm: warm, dry Head: atraumatic, normocephalic, symmetric Eyes: EOMI, no lid lag, anicteric sclera Mouth: no lip lesion, mucus membranes moist Cardiovascular: S1S2 reg, no murmur, positive posterior tibial pulse bilateral, Lungs: CTA bilateral, no rhonchi, no rales , no accessory muscle use Abdominal: soft, nontender to palpation, no guarding, no appreciable organomegaly Ext: no gross muscle atrophy, no edema, no contractures Neuro: CN II-XI grossly intact, no focal neuro deficits Psych: Alert, oriented, appropriate affect A total of 25 minutes of time were spent preparing this complex discharge summary . Patient Condition at Discharge: Stable Plan - Discharge Summary Discharge Rx Participant: Yes New Discharge Prescriptions: New HYDROcodone/APAP 5-325MG [[place] 5-325] 1 each PO Q6HR PRN #12 tab PRN Reason: Pain Pantoprazole [Protonix] 40 mg PO AC-BID #60 tablet.dr Nova busPIRone HCL 22.5 mg PO HS QUEtiapine [SEROquel] 25 mg PO HS Prazosin HCl [Minipress] 2 mg PO HS Escitalopram Oxalate [Lexapro] 20 mg PO HS Ranitidine HCl [Zantac] 150 mg PO BID PRN PRN Reason: Gi Upset Discharge Medication List Prazosin HCl [Minipress] 2 mg PO HS 11/15/18 [History] QUEtiapine [SEROquel] 25 mg PO HS 11/15/18 [History] busPIRone HCL 22.5 mg PO HS 11/15/18 [History] Escitalopram Oxalate [Lexapro] 20 mg PO HS 08/26/19 [History] Ranitidine HCl [Zantac] 150 mg PO BID PRN 08/26/19 [History] HYDROcodone/APAP 5-325MG [[place] 5-325] 1 each PO Q6HR PRN #12 tab 08/27/19 [Rx] Pantoprazole [Protonix] 40 mg PO AC-BID #60 tablet. 08/27/19 [Rx] Follow up Appointment(s)/Referral(s): Alondra Hill DO [Primary Care Provider] - 1-2 days Activity/Diet/Wound Care/Special Instructions: Activity: as tolerated Diet: soft and bland diet for 3 days Discharge Disposition: HOME SELF-CARE
[2019-08-27] MEDS ORDERED: busPIRone HCl 5 MG TAB PO SCH (21:00)
[2019-08-27] MEDS ORDERED: QUEtiapine 25 MG TAB PO SCH (21:00)
[2019-08-27] MEDS ORDERED: PRAZOSIN 1 MG CAP PO SCH (21:00)
[2019-08-27] MEDS ORDERED: ESCITALOPRAM 20 MG TAB PO SCH (21:00)
== END 2019-08-27 16:49 | disposition home or self-care (01) ==
LOC: EC 10:54 → 6NMEDSUR 15:51
PROVIDERS: ADMIT Internal Medicine; ATTEND Internal Medicine
DX: A08.39 Other viral enteritis (principal); E86.0 Dehydration; R74.0 Nonspecific elevation of levels of transaminase and lactic acid dehydrogenase [LDH]; K21.9 Gastro-esophageal reflux disease without esophagitis; K58.9 Irritable bowel syndrome, unspecified; F41.9 Anxiety disorder, unspecified; F32.9 Major depressive disorder, single episode, unspecified; F17.200 Nicotine dependence, unspecified, uncomplicated; Z90.49 Acquired absence of other specified parts of digestive tract; Z90.710 Acquired absence of both cervix and uterus; Z90.89 Acquired absence of other organs; Z82.49 Family history of ischemic heart disease and other diseases of the circulatory system; Z79.899 Other long term (current) drug therapy; Z88.1 Allergy status to other antibiotic agents; Z88.2 Allergy status to sulfonamides; Z88.5 Allergy status to narcotic agent; Z88.6 Allergy status to analgesic agent
CPT/HCPCS: 96361 ×2; 96375 ×2; 96376; 96374; 99285; 36415; 80053; 80048; 80074; 84443; 83605; 83690; 85025; 85027; 81001; 74018; 76705; G0378 ×2; J2270; J1200; J2405

== ENCOUNTER 2019-09-12 19:04 | Emergency (ER) | payer OTHER ==
[2019-09-12 19:21] VITALS: RESP 18
[2019-09-12] MEDS ORDERED: SODIUM CHLORIDE 0.9% 1,000 ML IV STA (20:27)
[2019-09-12] MEDS ORDERED: METOCLOPRAMIDE 5 MG/ML 2 ML VIAL IVP STA (20:27)
[2019-09-12] MEDS ORDERED: diphenhydrAMINE 50 MG/ML 1 ML VIAL IVP STA (20:27)
[2019-09-12] MEDS ORDERED: SODIUM CHLORIDE 0.9% 500 ML 500 ML IV STA (20:27)
[2019-09-12] MEDS ORDERED: MORPHINE SULFATE 4 MG/ML SYRINGE IVP STA (20:51)
[2019-09-12 21:04] LABS: Basophils # (A) 0.1 k/uL (0-0.2); Basophils % (A) 1 %; Eosinophils # (A) 0.1 k/uL (0-0.7); Eosinophils % (A) 2 %; HCT 39.7 % (34.0-46.0); HGB 13.4 gm/dL (11.4-16.0); Lymphocytes # (A) 2.3 k/uL (1.0-4.8); Lymphocytes % (A) 36 %; MCH 29.5 pg (25.0-35.0); MCHC 33.7 g/dL (31.0-37.0); MCV 87.4 fL (80.0-100.0); Mean Platelet Volume 7.7; Monocytes # (A) 0.4 k/uL (0-1.0); Monocytes % (A) 6 %; Neutrophils # (A) 3.4 k/uL (1.3-7.7); Neutrophils % (A) 52 %; Platelet Count 244 k/uL (150-450); RBC 4.54 m/uL (3.80-5.40); RDW 13.9 % (11.5-15.5); WBC 6.5 k/uL (3.8-10.6)
[2019-09-12 21:18] LABS: ALT 35 U/L (4-34); AST 45 U/L (14-36); African American GFR (CKD) >90 (>60 ml/min/1.73 sqM); Albumin 4.2 g/dL (3.5-5.0); Alkaline Phosphatase 112 U/L (38-126); Amylase 124 U/L (30-110); Anion Gap 8 mmol/L; Blood Urea Nitrogen 10 mg/dL (7-17); Calcium 9.3 mg/dL (8.4-10.2); Carbon Dioxide 24 mmol/L (22-30); Chloride 105 mmol/L (98-107); Glucose 102 mg/dL (74-99); Non-African American GFR(CKD) >90 (>60 ml/min/1.73 sqM); Potassium 3.9 mmol/L (3.5-5.1); Sodium 137 mmol/L (137-145); Total Bilirubin 0.7 mg/dL (0.2-1.3); Total Protein 7.7 g/dL (6.3-8.2)
--- NOTE | 2019-09-12 21:25 | XR ---
EXAMINATION TYPE: XR KUB DATE OF EXAM: 09/12/2019 9:01 PM CLINICAL HISTORY: Abdominal pain with nausea and vomiting. TECHNIQUE: Two Upright KUB images of the abdomen are obtained. COMPARISON: CT abdomen and pelvis August 24, 2019 and abdominal x-ray August 26, 2019 FINDINGS: Scattered gas is seen in non-distended stomach and small bowel loops. Gas is seen in non-di stended colon. Cholecystectomy clips are present. Additional dropped clip in the left pelvis is noted . Lung bases are clear. No suspicious calcification. Osseous structures are intact. Tiny bilateral re nal calculi on CT less well seen on plain films. IMPRESSION: Overall nonobstructive bowel gas pattern.
[2019-09-12 22:40] VITALS: BP 133/81; PULSE 81; TEMP 98.5
[2019-09-12] MEDS ORDERED: ACET/COD 300 MG/30 MG STARTER PACK 6 TAB BTL PO STA (22:46)
[2019-09-12 22:47] LABS: Appearance,Urine Clear (Clear); Bilirubin,Urine Negative (Negative); Blood,Urine Negative (Negative); Color,Urine Yellow; Glucose,Urine (UA) Negative (Negative); Ketones,Urine 2+ (Negative); Leukocyte Esterase,Urine Negative (Negative); Nitrite,Urine Negative (Negative); PH, Urine 6.5 (5.0-8.0); Protein,Urine Trace (Negative); Specific Gravity,Urine 1.018 (1.001-1.035)
--- NOTE | 2019-09-12 22:49 | ED ---
General Adult HPI - General Chief complaint: Abdominal Pain Stated complaint: in quicker/vomiting Time Seen by Provider: 09/12/19 19:28 Source: patient Mode of arrival: wheelchair Limitations: no limitations - History of Present Illness Initial comments: 28-year-old female patient presents to the emergency department today for evaluation of upper abdominal pain and vomiting. Patient states for the last 6 weeks is however intermittent episodes of nausea, vomiting, abdominal pain lasting 3-4 days with each episode. Patient states she has been evaluated in the emergency department multiple times admitted to the hospital one time for this. Patient states she did see a GI specialist while here and there thinking her symptoms are related to viral gastroenteritis. Patient has had a ultrasound, CAT scan of the abdomen without any significant findings. Patient states that she has lost around 9 pounds without trying. States that she is unable to keep down any food or fluids today. She denies fever or chills with this. Denies any current diarrhea but states she has had diarrhea in the past with the episodes. Denies any hematochezia, melena, hematemesis. She states the pain is radiating through to her back today. Patient denies any alcohol use. Denies any known food ALLERGIES. Denies any recent travel or sick contacts. Denies any new medications within the last 6 weeks. Patient does admit to smoking marijuana several times per day. States she has been doing this for the last several years. Patient denies any recent rash, shortness breath, chest pain, numbness, tingling, dizziness, weakness, hematuria, dysuria, urinary urgency, urinary frequency, headache, visual changes, or any other complaints. - Related Data Home Medications Medication Instructions Recorded Confirmed Prazosin HCl [Minipress] 2 mg PO HS 11/15/18 08/26/19 QUEtiapine [SEROquel] 25 mg PO HS 11/15/18 08/26/19 busPIRone HCL 22.5 mg PO HS 11/15/18 08/26/19 Escitalopram Oxalate [Lexapro] 20 mg PO HS 08/26/19 08/26/19 Ranitidine HCl [Zantac] 150 mg PO BID PRN 08/26/19 08/26/19 Previous Rx's Medication Instructions Recorded HYDROcodone/APAP 5-325MG [[place] 1 each PO Q6HR PRN #12 tab 08/27/19 5-325] Pantoprazole [Protonix] 40 mg PO AC-BID #60 tablet. 08/27/19 Famotidine [Pepcid] 20 mg PO BID #60 tablet 09/12/19 Metoclopramide [Reglan] 10 mg PO Q8H PRN #30 tab 09/12/19 Allergies Allergy/AdvReac Type Severity Reaction Status Date / Time azithromycin Allergy Unknown passed out Verified 09/12/19 19:19 [From Zithromax Z-Eusebio] clarithromycin [From Biaxin] Allergy Unknown passed out Verified 09/12/19 19:19 hydromorphone HCl Allergy Unknown Rash/Hives Verified 09/12/19 19:19 [From Dilaudid] ibuprofen Allergy Unknown Nausea & Verified 09/12/19 19:19 Vomiting Sulfa (Sulfonamide Allergy Unknown Rash/Hives Verified 09/12/19 19:19 Antibiotics) Review of Systems ROS Statement: Those systems with pertinent positive or pertinent negative responses have been documented in the HPI. ROS Other: All systems not noted in ROS Statement are negative. Past Medical History Past Medical History: GERD/Reflux Additional Past Medical History / Comment(s): hernia, IBS, migraines History of Any Multi-Drug Resistant Organisms: None Reported Past Surgical History: Adenoidectomy, Cholecystectomy, Hernia Repair, Hysterectomy Additional Past Surgical History / Comment(s): myringotomy x 2 Past Anesthesia/Blood Transfusion Reactions: Motion Sickness, Postoperative Nausea & Vomiting (PONV) Additional Past Anesthesia/Blood Transfusion Reaction / Comment(s): "freaks out and has anxiety when waking up" Past Psychological History: Anxiety Smoking Status: Current every day smoker Past Alcohol Use History: None Reported Past Drug Use History: Marijuana - Past Family History Mother Family Medical History: Hyperlipidemia, Hypertension, Myocardial Infarction ([place]) Father Family Medical History: Liver Disease Additional Family Medical History / Comment(s): low platelets. ETOH. General Exam Limitations: no limitations General appearance: alert, in no apparent distress, other (This is a well- developed, well-nourished adult female patient in no acute distress. Vital signs upon presentation are temperature 98.7F, pulse 91, respirations 18, blood pressure 120/78, pulse ox 100% on room air.) Eye exam: Present: normal appearance, PERRL, EOMI. Absent: scleral icterus, conjunctival injection, periorbital swelling ENT exam: Present: normal exam, normal oropharynx, mucous membranes moist Respiratory exam: Present: normal lung sounds bilaterally. Absent: respiratory distress, wheezes, rales, rhonchi, stridor Cardiovascular Exam: Present: regular rate, normal rhythm, normal heart sounds. Absent: systolic murmur, diastolic murmur, rubs, gallop, clicks GI/Abdominal exam: Present: soft, tenderness (Midepigastric and left upper quadrant tenderness), normal bowel sounds. Absent: distended, guarding, rebound, rigid Neurological exam: Present: alert, oriented X3, CN II-XII intact Psychiatric exam: Present: normal affect, normal mood Skin exam: Present: warm, dry, intact, normal color. Absent: rash Course Vital Signs 09/12/19 09/12/19 09/12/19 19:19 21:30 22:37 Temperature 98.7 F 98.7 F 98.5 F Pulse Rate 91 91 81 Respiratory 18 18 18 Rate Blood Pressure 124/78 132/78 133/81 O2 Sat by Pulse 100 100 96 Oximetry 09/12/19 22:58 Temperature 98.5 F Pulse Rate 81 Respiratory 18 Rate Blood Pressure 133/81 O2 Sat by Pulse 96 Oximetry Medical Decision Making - Medical Decision Making 28-year-old female patient presented to the emergency department today for evaluation of upper abdominal pain, patient has been having intermittent episodes similar to this over the last 6 weeks. States episodes are lasting 3-4 days each. Physical examination did reveal midepigastric and left upper quadrant tenderness. Labs reviewed and did reveal mildly elevated liver enzymes, mildly elevated lipase. Patient did have a recent admission where she underwent gallbladder ultrasound which was unremarkable. She also had a hepatitis panel performed which was negative. CT abd and pelvis a couple of weeks ago was negative. Today KUB x-ray was obtained and showed no acute abnormalities. She did have cholecystectomy in the past. Patient did admit to smoking marijuana several times per day for the last few years. We did discuss cannabis hyperemesis syndrome as a possible cause for her symptoms. She is advised to stop smoking marijuana as a trial to see if her symptoms improve. She'll also be started on Pepcid twice daily. She is instructed to follow-up with [facility] for further evaluation and did discuss upper GI e ndoscopy and colonoscopy for further evaluation of her symptoms. She is given prescription for Reglan to control nausea. Return parameters were discussed in detail. She verbalizes understanding and agrees with this plan. - Lab Data Result diagrams: 09/12/19 20:43 09/12/19 20:43 Lab Results 09/12/19 09/12/19 09/12/19 Range/Units 20:43 20:43 20:43 WBC 6.5 (3.8-10.6) k/uL RBC 4.54 (3.80-5.40) m/uL Hgb 13.4 (11.4-16.0) gm/dL Hct 39.7 (34.0-46.0) % MCV 87.4 (80.0-100.0) fL MCH 29.5 (25.0-35.0) pg MCHC 33.7 (31.0-37.0) g/dL RDW 13.9 (11.5-15.5) % Plt Count 244 (150-450) k/uL Neutrophils % 52 % Lymphocytes % 36 % Monocytes % 6 % Eosinophils % 2 % Basophils % 1 % Neutrophils # 3.4 (1.3-7.7) k/uL Lymphocytes # 2.3 (1.0-4.8) k/uL Monocytes # 0.4 (0-1.0) k/uL Eosinophils # 0.1 (0-0.7) k/uL Basophils # 0.1 (0-0.2) k/uL Sodium 137 (137-145) mmol/L Potassium 3.9 (3.5-5.1) mmol/L Chloride 105 (98-107) mmol/L Carbon Dioxide 24 (22-30) mmol/L Anion Gap 8 mmol/L BUN 10 (7-17) mg/dL Creatinine 0.57 (0.52-1.04) mg/dL Est GFR (CKD-EPI)AfAm >90 (>60 ml/min/1.73 sqM) Est GFR (CKD-EPI)NonAf >90 (>60 ml/min/1.73 sqM) Glucose 102 H (74-99) mg/dL Plasma Lactic Acid [place] 1.3 (0.7-2.0) mmol/L Calcium 9.3 (8.4-10.2) mg/dL Total Bilirubin 0.7 (0.2-1.3) mg/dL AST 45 H (14-36) U/L ALT 35 H (4-34) U/L Alkaline Phosphatase 112 (38-126) U/L Total Protein 7.7 (6.3-8.2) g/dL Albumin 4.2 (3.5-5.0) g/dL Amylase 124 H (30-110) U/L Lipase 350 H (23-300) U/L Urine Color Urine Appearance (Clear) Urine pH (5.0-8.0) Ur Specific [place] (1.001-1.035) Urine Protein (Negative) Urine Glucose (UA) (Negative) Urine Ketones (Negative) Urine Blood (Negative) Urine Nitrite (Negative) Urine Bilirubin (Negative) Urine Urobilinogen (<2.0) mg/dL Ur Leukocyte Esterase (Negative) 09/12/19 Range/Units 22:37 WBC (3.8-10.6) k/uL RBC (3.80-5.40) m/uL Hgb (11.4-16.0) gm/dL Hct (34.0-46.0) % MCV (80.0-100.0) fL MCH (25.0-35.0) pg MCHC (31.0-37.0) g/dL RDW (11.5-15.5) % Plt Count (150-450) k/uL Neutrophils % % Lymphocytes % % Monocytes % % Eosinophils % % Basophils % % Neutrophils # (1.3-7.7) k/uL Lymphocytes # (1.0-4.8) k/uL Monocytes # (0-1.0) k/uL Eosinophils # (0-0.7) k/uL Basophils # (0-0.2) k/uL Sodium (137-145) mmol/L Potassium (3.5-5.1) mmol/L Chloride (98-107) mmol/L Carbon Dioxide (22-30) mmol/L Anion Gap mmol/L BUN (7-17) mg/dL Creatinine (0.52-1.04) mg/dL Est GFR (CKD-EPI)AfAm (>60 ml/min/1.73 sqM) Est GFR (CKD-EPI)NonAf (>60 ml/min/1.73 sqM) Glucose (74-99) mg/dL Plasma Lactic Acid [place] (0.7-2.0) mmol/L Calcium (8.4-10.2) mg/dL Total Bilirubin (0.2-1.3) mg/dL AST (14-36) U/L ALT (4-34) U/L Alkaline Phosphatase (38-126) U/L Total Protein (6.3-8.2) g/dL Albumin (3.5-5.0) g/dL Amylase (30-110) U/L Lipase (23-300) U/L Urine Color Yellow Urine Appearance Clear (Clear) Urine pH 6.5 (5.0-8.0) Ur Specific [place] 1.018 (1.001-1.035) Urine Protein Trace H (Negative) Urine Glucose (UA) Negative (Negative) Urine Ketones 2+ H (Negative) Urine Blood Negative (Negative) Urine Nitrite Negative (Negative) Urine Bilirubin Negative (Negative) Urine Urobilinogen 3.0 (<2.0) mg/dL Ur Leukocyte Esterase Negative (Negative) - Radiology Data Radiology results: report reviewed, image reviewed KUB x-ray was obtained. Report was reviewed in its entirety. Impression by shows overall nonobstructive bowel gas pattern. Disposition Clinical Impression: Vomiting, Abdominal pain Disposition: HOME SELF-CARE Condition: Good Instructions (If sedation given, give patient instructions): Acute Nausea and Vomiting (ED), Abdominal Pain (ED) Additional Instructions: Take medications as directed. Start clear liquid diet and advance as tolerated. Follow-up with gastroenterology for further evaluation as soon as possible. Return to the emergency department immediately for any new, worsening, or concerning symptoms. Prescriptions: Famotidine [Pepcid] 20 mg PO BID #60 tablet Metoclopramide [Reglan] 10 mg PO Q8H PRN #30 tab PRN Reason: Vomiting Is patient prescribed a controlled substance at d/c from ED?: No Referrals: Alondra Hill DO [Primary Care Provider] - 1-2 days Tammi Fiore MD [STAFF PHYSICIAN] - 1-2 days Time of Disposition: 22:48
== END 2019-09-12 23:00 | disposition home or self-care (01) ==
LOC: EC 19:04
DX: R10.10 Upper abdominal pain, unspecified (principal); R11.10 Vomiting, unspecified; R74.8 Abnormal levels of other serum enzymes; F41.9 Anxiety disorder, unspecified; F17.200 Nicotine dependence, unspecified, uncomplicated; Z79.899 Other long term (current) drug therapy; Z88.1 Allergy status to other antibiotic agents; Z88.5 Allergy status to narcotic agent; Z88.6 Allergy status to analgesic agent; Z88.2 Allergy status to sulfonamides; Z90.49 Acquired absence of other specified parts of digestive tract; Z90.710 Acquired absence of both cervix and uterus
CPT/HCPCS: 36415; 80053; 82150; 83605; 83690; 85025; 81003; 74018; 99284; 96374; 96375 ×2; 96361 ×2; J2270; J1200; J2765

== ENCOUNTER 2019-09-16 18:39 | Emergency (ER) | payer OTHER ==
[2019-09-16 18:43] VITALS: RESP 16
[2019-09-16] MEDS ORDERED: METOCLOPRAMIDE 5 MG/ML 2 ML VIAL IVP STA (18:58)
[2019-09-16] MEDS ORDERED: MORPHINE SULFATE 4 MG/ML SYRINGE IV STA (18:58)
[2019-09-16] MEDS ORDERED: diphenhydrAMINE 50 MG/ML 1 ML VIAL IVP STA (18:58)
[2019-09-16] MEDS ORDERED: SODIUM CHLORIDE 0.9% 2,000 ML IV STA (18:58)
--- NOTE | 2019-09-16 19:07 | ED ---
Nausea/Vomiting/Diarrhea HPI - General Chief complaint: Nausea/Vomiting/Diarrhea Stated complaint: Vomiting; fever Time Seen by Provider: 09/16/19 18:49 Source: patient Mode of arrival: ambulatory Limitations: no limitations - History of Present Illness Initial comments: 28-year-old female patient presents to the emergency department today for evaluation of vomiting and abdominal pain. Patient states that she's had symptoms on and off for the last 6-7 weeks. States that she'll have episodes like this in the last 3-4 days and then she'll be fine. Patient states that for the last couple of days she's been unable to keep down any food or fluids. S tates she is unable to keep down her medications. Patient is reporting pain to her low back and upper abdominal discomfort. She denies any hematochezia, melena, or hematemesis. Denies any alcohol use. Patient states that she has been running low-grade temperatures are 99F. She denies any recent travel or sick contacts. Patient has been evaluated for this several times over the last few weeks including one hospital admission. She did have a negative CT scan two weeks ago, negative ultrasound, and multiple negative xrays. At her last emergency visit four days ago we did discuss cannabis hyperemesis syndrome as a possible cause for her symptoms and patient agreed to a trial without smoking marijuana. Today patient states that she has not smoked marijuana in at least two weeks and states she is not feeling any better. She was also able to make an appointment with GI and will be seen on 10/05/19. Patient is very upset that she is not feeling better. Patient denies any recent rash, cough, shortness of breath, chest pain, back pain, numbness, tingling, dizziness, weakness, hematuria, dysuria, urinary urgency, urinary frequency, headache, visual changes, or any other complaints. - Related Data Home Medications Medication Instructions Recorded Confirmed Prazosin HCl [Minipress] 2 mg PO HS 11/15/18 08/26/19 QUEtiapine [SEROquel] 25 mg PO HS 11/15/18 08/26/19 busPIRone HCL 22.5 mg PO HS 11/15/18 08/26/19 Escitalopram Oxalate [Lexapro] 20 mg PO HS 08/26/19 08/26/19 Ranitidine HCl [Zantac] 150 mg PO BID PRN 08/26/19 08/26/19 Previous Rx's Medication Instructions Recorded HYDROcodone/APAP 5-325MG [[place] 1 each PO Q6HR PRN #12 tab 08/27/19 5-325] Pantoprazole [Protonix] 40 mg PO AC-BID #60 tablet. 08/27/19 Famotidine [Pepcid] 20 mg PO BID #60 tablet 09/12/19 Metoclopramide [Reglan] 10 mg PO Q8H PRN #30 tab 09/12/19 Prochlorperazine Suppository 25 mg RECTAL BID #10 supp 09/16/19 [Compazine] Allergies Allergy/AdvReac Type Severity Reaction Status Date / Time azithromycin Allergy Unknown passed out Verified 09/16/19 18:43 [From Zithromax Z-Eusebio] clarithromycin [From Biaxin] Allergy Unknown passed out Verified 09/16/19 18:43 hydromorphone HCl Allergy Unknown Rash/Hives Verified 09/16/19 18:43 [From Dilaudid] ibuprofen Allergy Unknown Nausea & Verified 09/16/19 18:43 Vomiting Sulfa (Sulfonamide Allergy Unknown Rash/Hives Verified 09/16/19 18:43 Antibiotics) Review of Systems ROS Statement: Those systems with pertinent positive or pertinent negative responses have been documented in the HPI. ROS Other: All systems not noted in ROS Statement are negative. Past Medical History Past Medical History: GERD/Reflux Additional Past Medical History / Comment(s): hernia, IBS, migraines History of Any Multi-Drug Resistant Organisms: None Reported Past Surgical History: Adenoidectomy, Cholecystectomy, Hernia Repair, Hysterectomy Additional Past Surgical History / Comment(s): myringotomy x 2 Past Anesthesia/Blood Transfusion Reactions: Motion Sickness, Postoperative Nausea & Vomiting (PONV) Additional Past Anesthesia/Blood Transfusion Reaction / Comment(s): "freaks out and has anxiety when waking up" Past Psychological History: Anxiety Smoking Status: Current every day smoker Past Alcohol Use History: None Reported Past Drug Use History: Marijuana - Past Family History Mother Family Medical History: Hyperlipidemia, Hypertension, Myocardial Infarction ([place]) Father Family Medical History: Liver Disease Additional Family Medical History / Comment(s): low platelets. ETOH. General Exam Limitations: no limitations General appearance: alert, in no apparent distress, other (This is a well- developed, well-nourished adult female patient in no acute distress. Vital signs upon presentation are temperature 99.2F, pulse 80, respiration 16, blood pressure 130/87, pulse ox 96% on room air.) Eye exam: Present: normal appearance, PERRL, EOMI. Absent: scleral icterus, conjunctival injection, periorbital swelling ENT exam: Present: normal exam, normal oropharynx, mucous membranes moist Respiratory exam: Present: normal lung sounds bilaterally. Absent: respiratory distress, wheezes, rales, rhonchi, stridor Cardiovascular Exam: Present: regular rate, normal rhythm, normal heart sounds. Absent: systolic murmur, diastolic murmur, rubs, gallop, clicks GI/Abdominal exam: Present: soft, tenderness (Midepigastric tenderness), normal bowel sounds. Absent: distended, guarding, rebound, rigid Neurological exam: Present: alert, oriented X3, CN II-XII intact Psychiatric exam: Present: normal affect, normal mood Skin exam: Present: warm, dry, intact, normal color. Absent: rash Course Vital Signs 09/16/19 09/16/19 18:40 21:28 Temperature 99.2 F 97.6 F Pulse Rate 80 68 Respiratory 16 16 Rate Blood Pressure 130/87 115/71 O2 Sat by Pulse 96 99 Oximetry Medical Decision Making - Medical Decision Making 28-year-old female patient presented to the emergency department today for evaluation of upper abdominal pain and vomiting. Patient say she is unable to eat or drink. Physical examination did reveal some midepigastric tenderness. Labs reviewed and did reveal elevated liver enzymes. This is most likely related to remove her vomiting episodes. Remainder of labs are unremarkable. She was given IV hydration IV pain medication and nausea medication. Upon reevaluation shows report improvement of symptoms. She'll be discharged home with rectal Compazine to control symptoms. She is instructed to follow-up with GI specialty for recheck as soon as possible. Return parameters were discussed in detail. She verbalizes understanding and agrees with this plan. - Lab Data Result diagrams: 09/16/19 19:20 09/16/19 19:20 Lab Results 09/16/19 09/16/19 09/16/19 Range/Units 19:20 19:20 20:15 WBC 5.4 (3.8-10.6) k/uL RBC 4.70 (3.80-5.40) m/uL Hgb 13.9 (11.4-16.0) gm/dL Hct 40.8 (34.0-46.0) % MCV 87.0 (80.0-100.0) fL MCH 29.6 (25.0-35.0) pg MCHC 34.0 (31.0-37.0) g/dL RDW 13.8 (11.5-15.5) % Plt Count 232 (150-450) k/uL Neutrophils % 50 % Lymphocytes % 36 % Monocytes % 8 % Eosinophils % 3 % Basophils % 1 % Neutrophils # 2.7 (1.3-7.7) k/uL Lymphocytes # 2.0 (1.0-4.8) k/uL Monocytes # 0.4 (0-1.0) k/uL Eosinophils # 0.1 (0-0.7) k/uL Basophils # 0.0 (0-0.2) k/uL Sodium 137 (137-145) mmol/L Potassium 3.2 L (3.5-5.1) mmol/L Chloride 101 (98-107) mmol/L Carbon Dioxide 23 (22-30) mmol/L Anion Gap 13 mmol/L BUN 9 (7-17) mg/dL Creatinine 0.64 (0.52-1.04) mg/dL Est GFR (CKD-EPI)AfAm >90 (>60 ml/min/1.73 sqM) Est GFR (CKD-EPI)NonAf >90 (>60 ml/min/1.73 sqM) Glucose 82 (74-99) mg/dL Calcium 9.1 (8.4-10.2) mg/dL Total Bilirubin 0.8 (0.2-1.3) mg/dL AST 136 H (14-36) U/L ALT 189 H (4-34) U/L Alkaline Phosphatase 229 H (38-126) U/L Total Protein 7.4 (6.3-8.2) g/dL Albumin 4.2 (3.5-5.0) g/dL Lipase 253 (23-300) U/L Urine Color Yellow Urine Appearance Clear (Clear) Urine pH 5.5 (5.0-8.0) Ur Specific [place] 1.019 (1.001-1.035) Urine Protein 1+ H (Negative) Urine Glucose (UA) Negative (Negative) Urine Ketones 4+ H (Negative) Urine Blood Trace H (Negative) Urine Nitrite Negative (Negative) Urine Bilirubin Negative (Negative) Urine Urobilinogen 3.0 (<2.0) mg/dL Ur Leukocyte Esterase Negative (Negative) Urine RBC 1 (0-5) /hpf Urine WBC 2 (0-5) /hpf Ur Squamous Epith Cells 1 (0-4) /hpf Hyaline Casts 1 (0-2) /lpf Urine Mucus Many H (None) /hpf - Radiology Data Radiology results: report reviewed, image reviewed KUB x-ray is obtained. Report was reviewed in its entirety. Impression by Dr. Camejo shows nonacute abdomen. No change. Disposition Clinical Impression: Vomiting, Abdominal pain Disposition: HOME SELF-CARE Condition: Good Instructions (If sedation given, give patient instructions): Acute Nausea and Vomiting (ED), Abdominal Pain (ED) Additional Instructions: Take medications as directed. Start with clear liquid diet and advance as tolerated. Follow up with GI specialist for recheck as soon as possible. Return immediately for any new, worsening, or concerning symptoms. Prescriptions: Prochlorperazine Suppository [Compazine] 25 mg RECTAL BID #10 supp Is patient prescribed a controlled substance at d/c from ED?: No Referrals: Alondra Hill DO [Primary Care Provider] - 1-2 days Time of Disposition: 22:23
--- NOTE | 2019-09-16 19:36 | XR ---
EXAMINATION TYPE: XR [facility] DATE OF EXAM: 09/16/2019 COMPARISON: 09/12/2019 HISTORY: Nausea and vomiting for 6 weeks. TECHNIQUE: 2 views upright FINDINGS: There is no sign of intestinal obstruction or pneumoperitoneum. Fecal pattern is normal. Th ere is no sign of a mass. There are clips from cholecystectomy. Lung bases are clear. IMPRESSION: Nonacute abdomen. No change.
[2019-09-16 19:40] LABS: ALT 189 U/L (4-34); AST 136 U/L (14-36); African American GFR (CKD) >90 (>60 ml/min/1.73 sqM); Albumin 4.2 g/dL (3.5-5.0); Alkaline Phosphatase 229 U/L (38-126); Anion Gap 13 mmol/L; Blood Urea Nitrogen 9 mg/dL (7-17); Calcium 9.1 mg/dL (8.4-10.2); Carbon Dioxide 23 mmol/L (22-30); Chloride 101 mmol/L (98-107); Glucose 82 mg/dL (74-99); Non-African American GFR(CKD) >90 (>60 ml/min/1.73 sqM); Potassium 3.2 mmol/L (3.5-5.1); Sodium 137 mmol/L (137-145); Total Bilirubin 0.8 mg/dL (0.2-1.3); Total Protein 7.4 g/dL (6.3-8.2)
[2019-09-16 19:49] LABS: Basophils % (A) 1 %; Eosinophils # (A) 0.1 k/uL (0-0.7); Eosinophils % (A) 3 %; HCT 40.8 % (34.0-46.0); HGB 13.9 gm/dL (11.4-16.0); Lymphocytes % (A) 36 %; MCH 29.6 pg (25.0-35.0); Mean Platelet Volume 7.4; Monocytes # (A) 0.4 k/uL (0-1.0); Monocytes % (A) 8 %; Neutrophils # (A) 2.7 k/uL (1.3-7.7); Neutrophils % (A) 50 %; Platelet Count 232 k/uL (150-450); RDW 13.8 % (11.5-15.5); WBC 5.4 k/uL (3.8-10.6)
[2019-09-16 20:41] LABS: Appearance,Urine Clear (Clear); Bilirubin,Urine Negative (Negative); Blood,Urine Trace (Negative); Color,Urine Yellow; Glucose,Urine (UA) Negative (Negative); Hyaline Casts,Urine 1 /lpf (0-2); Ketones,Urine 4+ (Negative); Leukocyte Esterase,Urine Negative (Negative); Mucus,Urine Many /hpf; Nitrite,Urine Negative (Negative); PH, Urine 5.5 (5.0-8.0); Protein,Urine 1+ (Negative); RBC,Urine 1 /hpf (0-5); Specific Gravity,Urine 1.019 (1.001-1.035); Squamous Epithelial Cell,Urine 1 /hpf (0-4); WBC,Urine 2 /hpf (0-5)
[2019-09-16] MEDS ORDERED: POTASSIUM CHLORIDE ER 20 MEQ TAB.ER PO STA (20:43)
[2019-09-16] MEDS ORDERED: MORPHINE SULFATE 4 MG/ML SYRINGE IVP STA (21:22)
[2019-09-16 21:31] VITALS: BP 115/71; PULSE 68; TEMP 97.6
[2019-09-16] MEDS ORDERED: ACET/COD 300 MG/30 MG STARTER PACK 6 TAB BTL PO STA (22:23)
== END 2019-09-16 22:36 | disposition home or self-care (01) ==
LOC: EC 18:39
DX: R11.10 Vomiting, unspecified (principal); R10.10 Upper abdominal pain, unspecified; R74.8 Abnormal levels of other serum enzymes; M54.5 Low back pain; K21.9 Gastro-esophageal reflux disease without esophagitis; F41.9 Anxiety disorder, unspecified; F17.200 Nicotine dependence, unspecified, uncomplicated; Z88.1 Allergy status to other antibiotic agents; Z88.2 Allergy status to sulfonamides; Z88.5 Allergy status to narcotic agent; Z88.6 Allergy status to analgesic agent; Z79.899 Other long term (current) drug therapy; Z90.49 Acquired absence of other specified parts of digestive tract; Z83.79 Family history of other diseases of the digestive system
CPT/HCPCS: 36415; 80053; 83690; 85025; 81001; 74018; 99284; 96374; 96375 ×2; 96376; 96361 ×3; J2270; J1200; J2765

== ENCOUNTER → 2020-03-13 | Day surgery (SDC) | payer OTHER ==
[2020-03-09 12:22] VITALS: BMI 26.5
[~2020-03-13] MED LIST: FAMOTIDINE 20 MG/2 ML VIAL IV ONE; LACTATED RINGERS 1,000 ML IV SCH; LIDOCAINE 1% (10MG/ML) FOR IV START INTRADERMA PRN; LIDOCAINE 1% INJ 10MG/ML (20 ML MDV) ONE; PROPOFOL 10 MG/ML 20 ML VIAL IV ONE; fentaNYL (PF) 50 MCG/ML 2 ML AMP IVP ONE; fentaNYL (PF) 50 MCG/ML 2 ML AMP ONE
[2020-03-13 12:02] VITALS: RESP 16; TEMP 98.3
--- NOTE | 2020-03-13 13:44 | P.PCN ---
Date of Procedure: 03/13/20 Description of Procedure: BRIEF HISTORY: Patient is a 29-year-old female presenting for outpatient EGD for evaluation of GERD. Patient has a long-standing history of gastroesophageal reflux disease, abdominal pain and diarrhea. She has diagnosis of endometriosis and irritable bowel syndrome. She's had multiple endoscopies in the past her last EGD was approximately 7 years ago. Currently the patient takes both PPI and H2 antagonist therapy. She has been given dietary modification. PROCEDURE PERFORMED: Esophagogastroduodenoscopy with biopsy. PREOPERATIVE DIAGNOSIS: Gastroesophageal reflux disease, abdominal pain. ESTIMATED BLOOD LOSS: Minimal. IV sedation per anesthesia. PROCEDURE: After informed consent was obtained, the patient was brought into the endoscopy unit. IV sedation was administered by Anesthesia under continuous monitoring. Initially the Olympus GIF-190 video endoscope was inserted into the mouth. Esophagus intubated without any difficulty. It was gradually advanced into the stomach and duodenum and carefully examined. The bulb and the second part of the duodenum appeared normal, with biopsies taken. The scope at this time was withdrawn to the stomach, adequately insufflated with air, and upon careful examination, mucosa of the antrum, body, cardia and the fundus appeared normal, except for some mild scattered punctate erythema in the antrum and body suggestive of mild gastritis with biopsies taken. The scope was then withdrawn into the esophagus. The GE junction was located at 37 cm from the incisors and biopsied. A small 1 cm hiatal hernia was. The esophagus appeared normal. There were no erosions or ulcerations seen and the patient tolerated the procedure well. IMPRESSION: 1. Mild gastritis. 2. Biopsies of the duodenum, GE junction and antrum and body. RECOMMENDATIONS: The findings of this examination were discussed with the patient and her daughter. Okay to resume diet. Okay to resume medications. Continue medical management. Follow-up in GI clinic as previously scheduled.
[2020-03-13 14:32] VITALS: BP 110/70; PULSE 70
== END ==
LOC: ORWHC2ENDO 11:43
PROVIDERS: ATTEND Internal Medicine
DX: K21.0 Gastro-esophageal reflux disease with esophagitis (principal); K29.50 Unspecified chronic gastritis without bleeding; K44.9 Diaphragmatic hernia without obstruction or gangrene; K58.0 Irritable bowel syndrome with diarrhea; N80.9 Endometriosis, unspecified; Z88.1 Allergy status to other antibiotic agents; Z88.5 Allergy status to narcotic agent; Z88.6 Allergy status to analgesic agent; Z88.2 Allergy status to sulfonamides; Z79.899 Other long term (current) drug therapy; Z98.890 Other specified postprocedural states; Z90.710 Acquired absence of both cervix and uterus; Z87.19 Personal history of other diseases of the digestive system; Z90.89 Acquired absence of other organs; Z86.69 Personal history of other diseases of the nervous system and sense organs; Z87.898 Personal history of other specified conditions
CPT/HCPCS: 88305; 43239; J2001; J3010; J2704

== ENCOUNTER 2020-04-21 22:18 | Emergency (ER) | payer OTHER ==
[2020-04-21] MEDS ORDERED: SODIUM CHLORIDE 0.9% 1,000 ML IV ONE (23:33)
--- NOTE | 2020-04-22 02:00 | ED ---
General Adult HPI - General Chief complaint: Overdose Stated complaint: possible overdose Time Seen by Provider: 04/21/20 22:27 Source: patient Mode of arrival: ambulatory Limitations: no limitations - History of Present Illness Initial comments: Kailyn barrow 29-year-old female presents the ER today via private vehicle for evaluation of a syncopal episode after smoking marijuana ingesting mushrooms. Patient had reportedly been smoking marijuana throughout the day, around 7 PM she ingested mushrooms, around 10 PM she witnessed her mother who would also been ingesting these have a syncopal episode. EMS was called. It was quite chaotic scene. Upon EMS arrival the patient's aunt also had a syncopal episode. Patient became very anxious nervous maybe had some hyperventilation and after EMS left with her mother and her and she had a syncopal episode and was brought to the ER by her father. - Related Data Home Medications Medication Instructions Recorded Confirmed QUEtiapine [SEROquel] 25 mg PO HS 11/15/18 03/09/20 Escitalopram Oxalate [Lexapro] 20 mg PO HS 08/26/19 03/09/20 ALPRAZolam [Xanax] 0.5 mg PO HS PRN 03/09/20 03/09/20 LORazepam [Ativan] 1 mg PO DAILY PRN 03/09/20 03/09/20 busPIRone HCL [Buspar] 30 mg PO BID 03/09/20 03/09/20 Previous Rx's Medication Instructions Recorded Pantoprazole [Protonix] 40 mg PO AC-BID #60 tablet. 08/27/19 Famotidine [Pepcid] 20 mg PO BID #60 tablet 09/12/19 Allergies Allergy/AdvReac Type Severity Reaction Status Date / Time azithromycin Allergy Unknown passed out Verified 04/21/20 22:34 [From Zithromax Z-Eusebio] clarithromycin [From Biaxin] Allergy Unknown passed out Verified 04/21/20 22:34 hydromorphone HCl Allergy Unknown Rash/Hives Verified 04/21/20 22:34 [From Dilaudid] ibuprofen Allergy Unknown Nausea & Verified 04/21/20 22:34 Vomiting Sulfa (Sulfonamide Allergy Unknown Rash/Hives Verified 04/21/20 22:34 Antibiotics) Review of Systems ROS Statement: Those systems with pertinent positive or pertinent negative responses have been documented in the HPI. ROS Other: All systems not noted in ROS Statement are negative. Past Medical History Past Medical History: GERD/Reflux Additional Past Medical History / Comment(s): hernia, IBS, migraines, use of mushrooms History of Any Multi-Drug Resistant Organisms: None Reported Past Surgical History: Adenoidectomy, Cholecystectomy, Hernia Repair, Hysterectomy Additional Past Surgical History / Comment(s): myringotomy x 2. COLONOSCOPY/EGD Past Anesthesia/Blood Transfusion Reactions: Motion Sickness, Postoperative Nausea & Vomiting (PONV) Additional Past Anesthesia/Blood Transfusion Reaction / Comment(s): "freaks out and has anxiety when waking up" Past Psychological History: Anxiety, PTSD Smoking Status: Current every day smoker Past Alcohol Use History: Rare Past Drug Use History: None Reported - Past Family History Mother Family Medical History: Hyperlipidemia, Hypertension, Myocardial Infarction ([place]) Father Family Medical History: Liver Disease Additional Family Medical History / Comment(s): low platelets. ETOH. General Exam - General Exam Comments Initial Comments: Physical Exam GENERAL: Patient is well-developed and well-nourished. Patient is nontoxic and well- hydrated and is in no distress. HENT: Normocephalic, Atraumatic. EYES: PERRL, EOMI Pupils 5 mm but reactive bilaterally PULMONARY: Unlabored respirations. No audible rales rhonchi or wheezing was noted. CARDIOVASCULAR: There is a regular rate and rhythm without any murmurs gallops or rubs. ABDOMEN: Soft and nontender with normal bowel sounds. SKIN: Skin is clear with no lesions or rashes and otherwise unremarkable. : Deferred NEUROLOGIC: Patient is alert and oriented x3. Moving all extremities spontaneously MUSCULOSKELETAL: Normal extremities with adequate strength and full range of motion. No lower extremity swelling or edema. No calf tenderness. PSYCHIATRIC: Anxious Limitations: no limitations Course Vital Signs 04/21/20 04/21/20 04/22/20 22:31 23:30 00:30 Temperature 98.9 F Pulse Rate 85 81 85 Respiratory 10 L 18 17 Rate Blood Pressure 115/79 124/79 113/65 O2 Sat by Pulse 99 99 100 Oximetry Medical Decision Making - Medical Decision Making The patient was seen and evaluated history is obtained from patient, family and EMS History and physical exam are consistent with polysubstance ingestion, patient is somewhat sedated but wakes to voice, is appropriate, vital signs stable Patient was treated with IV fluids and observed for over 2 hours. This time patient's feeling much better, she feels reassured that her mother and aunt been discharged from the ER and they're comfortable being discharged home the other. Disposition Clinical Impression: Purposeful non-suicidal drug ingestion Disposition: HOME SELF-CARE Condition: Stable Additional Instructions: Refrain from any drug use specifically refrain from mixing drugs Return to the ER if he have any recurrence or worsening of her symptoms Is patient prescribed a controlled substance at d/c from ED?: No Referrals: Alondra Hill DO [Primary Care Provider] - 1-2 days
[2020-04-22 02:19] VITALS: RESP 18
[2020-04-22 02:22] VITALS: BP 123/70; PULSE 77; TEMP 98
== END 2020-04-22 02:15 | disposition home or self-care (01) ==
LOC: EC 22:18
DX: T62.0X1A Toxic effect of ingested mushrooms, accidental (unintentional), initial encounter (principal); R55 Syncope and collapse; F41.9 Anxiety disorder, unspecified; F43.10 Post-traumatic stress disorder, unspecified; K21.9 Gastro-esophageal reflux disease without esophagitis; F17.200 Nicotine dependence, unspecified, uncomplicated; Z79.899 Other long term (current) drug therapy; Z88.1 Allergy status to other antibiotic agents; Z88.2 Allergy status to sulfonamides; Z88.6 Allergy status to analgesic agent; Z88.8 Allergy status to other drugs, medicaments and biological substances
CPT/HCPCS: 93005; 96360; 99284

== ENCOUNTER 2020-06-20 12:15 | Emergency (ER) | payer OTHER ==
[2020-06-20 12:25] VITALS: RESP 18
[2020-06-20] MEDS ORDERED: ONDANSETRON 4 MG/2 ML VIAL IVP STA (12:34)
[2020-06-20] MEDS ORDERED: MORPHINE SULFATE 4 MG/ML SYRINGE IV STA (12:34)
[2020-06-20] MEDS ORDERED: SODIUM CHLORIDE 0.9% 1,000 ML IV STA (12:34)
[2020-06-20 12:55] LABS: Basophils # (A) 0.1 k/uL (0-0.2); Basophils % (A) 1 %; Eosinophils # (A) 0.4 k/uL (0-0.7); Eosinophils % (A) 4 %; HCT 42.2 % (34.0-46.0); HGB 14.4 gm/dL (11.4-16.0); Lymphocytes # (A) 2.1 k/uL (1.0-4.8); Lymphocytes % (A) 19 %; MCH 31.1 pg (25.0-35.0); MCHC 34.1 g/dL (31.0-37.0); MCV 91.3 fL (80.0-100.0); Mean Platelet Volume 7.6; Monocytes # (A) 0.4 k/uL (0-1.0); Monocytes % (A) 4 %; Neutrophils # (A) 7.6 k/uL (1.3-7.7); Neutrophils % (A) 72 %; Platelet Count 246 k/uL (150-450); RBC 4.63 m/uL (3.80-5.40); RDW 12.3 % (11.5-15.5); WBC 10.6 k/uL (3.8-10.6)
[2020-06-20] MEDS ORDERED: diphenhydrAMINE 50 MG/ML 1 ML VIAL IVP STA (13:03)
[2020-06-20 13:07] LABS: ALT 22 U/L (4-34); AST 25 U/L (14-36); African American GFR (CKD) >90 (>60 ml/min/1.73 sqM); Albumin 4.4 g/dL (3.5-5.0); Alkaline Phosphatase 93 U/L (38-126); Amylase 75 U/L (30-110); Anion Gap 11 mmol/L; Blood Urea Nitrogen 15 mg/dL (7-17); Calcium 8.8 mg/dL (8.4-10.2); Carbon Dioxide 19 mmol/L (22-30); Chloride 111 mmol/L (98-107); Glucose 83 mg/dL (74-99); Lipase 152 U/L (23-300); Non-African American GFR(CKD) >90 (>60 ml/min/1.73 sqM); Potassium 3.6 mmol/L (3.5-5.1); Sodium 141 mmol/L (137-145); Total Bilirubin 0.8 mg/dL (0.2-1.3); Total Protein 7.5 g/dL (6.3-8.2)
--- NOTE | 2020-06-20 13:16 | XR ---
EXAMINATION TYPE: XR KUB DATE OF EXAM: 06/20/2020 COMPARISON: NONE HISTORY: 09/16/2019 TECHNIQUE: One view abdominal series FINDINGS: The osseous structures are intact. The bowel gas pattern is nonspecific. Lung bases are clear. Post surgical change in the right lower quadrant. IMPRESSION: 1. Nonspecific abdomen.
--- NOTE | 2020-06-20 13:22 | ED ---
General Adult HPI - General Source: patient, EMS, RN notes reviewed, old records reviewed Mode of arrival: EMS Limitations: no limitations <Christopher Pérez - Last Filed: 06/20/20 14:33> <Christopher Luque - Last Filed: 06/20/20 18:42> - General Chief complaint: Abdominal Pain Stated complaint: abd pain Time Seen by Provider: 06/20/20 12:17 - History of Present Illness Initial comments: 29-year-old female presents for evaluation of right-sided abdominal pain nausea vomiting. She has been vomiting for the past 4 days. She has developed pain over the past 24 hours. Denies dysuria or hematuria. She has had some diarrhea. She reports subjective fever and chills. She has previous history of cholecystectomy. As well as hysterectomy. (Christopher Pérez) - Related Data Home Medications Medication Instructions Recorded Confirmed QUEtiapine [SEROquel] 25 mg PO HS 11/15/18 06/20/20 Escitalopram Oxalate [Lexapro] 20 mg PO DAILY 08/26/19 06/20/20 ALPRAZolam [Xanax] 0.25 - 0.5 mg PO BID PRN 03/09/20 06/20/20 busPIRone HCL [Buspar] 30 mg PO BID 03/09/20 06/20/20 Previous Rx's Medication Instructions Recorded Pantoprazole [Protonix] 40 mg PO AC-BID #60 tablet. 08/27/19 Morphine Sulfate [Morphine Sulfate 15 mg PO Q6HR 3 Days #12 tablet.er 06/20/20 ER] Tamsulosin [Flomax] 0.4 mg PO DAILY #7 cap 06/20/20 Allergies Allergy/AdvReac Type Severity Reaction Status Date / Time hydromorphone HCl Allergy Unknown Rash/Hives Verified 06/20/20 14:00 [From Dilaudid] Sulfa (Sulfonamide Allergy Unknown Rash/Hives Verified 06/20/20 14:00 Antibiotics) azithromycin AdvReac Unknown passed out Verified 06/20/20 14:00 [From Zithromax Z-Eusebio] clarithromycin [From Biaxin] AdvReac Unknown passed out Verified 06/20/20 14:00 ibuprofen AdvReac Unknown Nausea & Verified 06/20/20 14:00 Vomiting metoclopramide [From Reglan] AdvReac Rapid Verified 06/20/20 14:00 Heart Rate ondansetron [From Zofran] AdvReac Rapid Verified 06/20/20 14:00 Heart Rate Review of Systems ROS Other: All systems not noted in ROS Statement are negative. <Christopher Pérez Gavin - Last Filed: 06/20/20 14:33> ROS Other: All systems not noted in ROS Statement are negative. <RebelChristopher - Last Filed: 06/20/20 18:42> ROS Statement: Those systems with pertinent positive or pertinent negative responses have been documented in the HPI. Past Medical History Past Medical History: GERD/Reflux Additional Past Medical History / Comment(s): hernia, IBS, migraines, use of mu shrooms History of Any Multi-Drug Resistant Organisms: None Reported Past Surgical History: Adenoidectomy, Cholecystectomy, Hernia Repair, Hysterectomy Additional Past Surgical History / Comment(s): myringotomy x 2. COLONOSCOPY/EGD Past Anesthesia/Blood Transfusion Reactions: Motion Sickness, Postoperative Nausea & Vomiting (PONV) Additional Past Anesthesia/Blood Transfusion Reaction / Comment(s): "freaks out and has anxiety when waking up" Past Psychological History: Anxiety, PTSD Smoking Status: Current every day smoker Past Alcohol Use History: Rare Past Drug Use History: Marijuana - Past Family History Mother Family Medical History: Hyperlipidemia, Hypertension, Myocardial Infarction ([place]) Father Family Medical History: Liver Disease Additional Family Medical History / Comment(s): low platelets. ETOH. <Christopher Pérez N - Last Filed: 06/20/20 14:33> General Exam Limitations: no limitations General appearance: alert, in no apparent distress Head exam: Present: atraumatic, normocephalic Eye exam: Present: normal appearance, PERRL ENT exam: Present: mucous membranes dry Neck exam: Present: normal inspection. Absent: tenderness, meningismus Respiratory exam: Present: normal lung sounds bilaterally. Absent: respiratory distress, wheezes Cardiovascular Exam: Present: regular rate, normal rhythm GI/Abdominal exam: Present: soft, tenderness (Minimal generalized tenderness). Absent: distended, guarding, rebound Extremities exam: Present: normal inspection, normal capillary refill. Absent: pedal edema, calf tenderness Neurological exam: Present: alert, oriented X3, CN II-XII intact. Absent: motor sensory deficit Psychiatric exam: Present: normal affect, normal mood Skin exam: Present: warm, dry, intact. Absent: cyanosis, diaphoretic <Christopher Pérez - Last Filed: 06/20/20 14:33> Course <Christopher Pérez - Last Filed: 06/20/20 14:33> <Christopher Luque - Last Filed: 06/20/20 18:42> Vital Signs 06/20/20 06/20/20 06/20/20 12:20 14:17 16:20 Temperature 98.0 F 98.0 F Pulse Rate 86 75 66 Respiratory 18 18 18 Rate Blood Pressure 117/91 103/60 99/69 O2 Sat by Pulse 99 98 100 Oximetry - Reevaluation(s) Reevaluation #1: 06/20/20 1500 Case signed out with Dr. Luque awaiting reevaluation, CT results. ( Christopher Pérez) Reevaluation #2: 06/20/20 16:42 Patient still having some significant pain in the right side. Fentanyl helped somewhat. She will get more pain medication. The Toradol did not seem to help she states. (Christopher Luque) Medical Decision Making - Lab Data Result diagrams: 06/20/20 12:38 06/20/20 12:38 <Christopher Pérez - Last Filed: 06/20/20 14:33> - Lab Data Result diagrams: 06/20/20 12:38 06/20/20 12:38 - Radiology Data Radiology results: report reviewed, image reviewed <Christopher Luque - Last Filed: 06/20/20 18:42> - Medical Decision Making The patient did finally get some improvement her pain she will be discharged home on appropriate medication is a follow-up with her doctor return when necessary adequate fluids (Christopher Luque) - Lab Data Lab Results 06/20/20 06/20/20 06/20/20 Range/Units 12:38 12:38 13:33 WBC 10.6 (3.8-10.6) k/uL RBC 4.63 (3.80-5.40) m/uL Hgb 14.4 (11.4-16.0) gm/dL Hct 42.2 (34.0-46.0) % MCV 91.3 (80.0-100.0) fL MCH 31.1 (25.0-35.0) pg MCHC 34.1 (31.0-37.0) g/dL RDW 12.3 (11.5-15.5) % Plt Count 246 (150-450) k/uL MPV 7.6 Neutrophils % 72 % Lymphocytes % 19 % Monocytes % 4 % Eosinophils % 4 % Basophils % 1 % Neutrophils # 7.6 (1.3-7.7) k/uL Lymphocytes # 2.1 (1.0-4.8) k/uL Monocytes # 0.4 (0-1.0) k/uL Eosinophils # 0.4 (0-0.7) k/uL Basophils # 0.1 (0-0.2) k/uL Sodium 141 (137-145) mmol/L Potassium 3.6 (3.5-5.1) mmol/L Chloride 111 H (98-107) mmol/L Carbon Dioxide 19 L (22-30) mmol/L Anion Gap 11 mmol/L BUN 15 (7-17) mg/dL Creatinine 0.84 (0.52-1.04) mg/dL Est GFR (CKD-EPI)AfAm >90 (>60 ml/min/1.73 sqM) Est GFR (CKD-EPI)NonAf >90 (>60 ml/min/1.73 sqM) Glucose 83 (74-99) mg/dL Calcium 8.8 (8.4-10.2) mg/dL Total Bilirubin 0.8 (0.2-1.3) mg/dL AST 25 (14-36) U/L ALT 22 (4-34) U/L Alkaline Phosphatase 93 (38-126) U/L Total Protein 7.5 (6.3-8.2) g/dL Albumin 4.4 (3.5-5.0) g/dL Amylase 75 (30-110) U/L Lipase 152 (23-300) U/L Urine Color Yellow Urine Appearance Cloudy H (Clear) Urine pH 5.5 (5.0-8.0) Ur Specific [place] 1.027 (1.001-1.035) Urine Protein 1+ H (Negative) Urine Glucose (UA) Negative (Negative) Urine Ketones 3+ H (Negative) Urine Blood Large H (Negative) Urine Nitrite Negative (Negative) Urine Bilirubin 1+ H (Negative) Urine Urobilinogen 3.0 (<2.0) mg/dL Ur Leukocyte Esterase Negative (Negative) Urine RBC >182 H (0-5) /hpf Urine WBC 6 H (0-5) /hpf Ur Squamous Epith Cells 11 H (0-4) /hpf Urine Bacteria Rare H (None) /hpf Urine Mucus Many H (None) /hpf Disposition <Christopher Pérez - Last Filed: 06/20/20 14:33> Is patient prescribed a controlled substance at d/c from ED?: Yes When asked, does pt state using other controlled substances?: No If prescribed controlled substance>3 days was MAPS reviewed?: Yes If opioid is for acute pain is fill amount 7 days or less?: Yes If Rx opioid, was Start Talking consent form obtained?: Yes <Christopher Luque - Last Filed: 06/20/20 18:42> Clinical Impression: Kidney stone on right side, Renal colic on right side, Hematuria Disposition: HOME SELF-CARE Condition: Good Instructions (If sedation given, give patient instructions): Renal Colic (ED), Kidney Stones (ED), How to Strain Your Urine (ED) Prescriptions: Tamsulosin [Flomax] 0.4 mg PO DAILY #7 cap Morphine Sulfate [Morphine Sulfate ER] 15 mg PO Q6HR 3 Days #12 tablet.er Referrals: Alondra Hill DO [Primary Care Provider] - 1-2 days
[2020-06-20 13:59] LABS: Appearance,Urine Cloudy (Clear); Bacteria,Urine Rare /hpf; Bilirubin,Urine 1+ (Negative); Blood,Urine Large (Negative); Color,Urine Yellow; Glucose,Urine (UA) Negative (Negative); Ketones,Urine 3+ (Negative); Leukocyte Esterase,Urine Negative (Negative); Mucus,Urine Many /hpf; Nitrite,Urine Negative (Negative); PH, Urine 5.5 (5.0-8.0); Protein,Urine 1+ (Negative); RBC,Urine >182 /hpf (0-5); Specific Gravity,Urine 1.027 (1.001-1.035); Squamous Epithelial Cell,Urine 11 /hpf (0-4); WBC,Urine 6 /hpf (0-5)
[2020-06-20] MEDS ORDERED: KETOROLAC 15 MG/ML 1 ML VIAL IVP STA (14:32)
[2020-06-20] MEDS ORDERED: SODIUM CHLORIDE 0.9% 500 ML 500 ML IV ONE (14:32)
--- NOTE | 2020-06-20 15:18 | CT ---
EXAMINATION TYPE: CT abdomen pelvis wo con DATE OF EXAM: 06/20/2020 HISTORY: right flank pain CT DLP: 456.8 mGycm. Automated Exposure Control for Dose Reduction was Utilized. TECHNIQUE: CT scan of the abdomen and pelvis is performed without oral or IV contrast. COMPARISON: CT abdomen and pelvis August 24, 2019 FINDINGS: Within the limitations of a non-contrast study, the following observations are made. LUNG BASES: Stable small to tiny pericardial effusion measured 11 mm coronal image 39 inferiorly unch anged from prior. LIVER/GB: Stable mild hepatomegaly with prominent right hepatic lobe. Cholecystectomy clips redemonst rated. PANCREAS: No significant abnormality is seen. SPLEEN: Spleen appear slightly less prominent in size and measures within normal limits. ADRENALS: No significant abnormality is seen. KIDNEYS: There is stable 2 mm nonobstructing calculus upper pole left kidney coronal image 53. No lef t-sided hydronephrosis. Prior visualized 2 to 3 mm calculus lower pole of right kidney now was passed into proximal right ureter on axial image 54 with mild to minimal right-sided hydronephrosis. No int raluminal calculus in the poorly distended bladder. BOWEL: Suboptimal evaluation without enteric contrast. No suspicious small or large bowel dilatation. GENITAL ORGANS: Uterus surgically absent or markedly atrophic. Right-sided pelvic phlebolith redemons trated axial image 113. There is surgical clip left pelvis anteriorly on image 108 changed in positio n from prior study anterior right upper pelvis axial image 96, probable displaced intraperitoneal cho lecystectomy clip. LYMPH NODES: No greater than 1cm abdominal or pelvic lymph nodes are appreciated. OSSEOUS STRUCTURES: Mild facet arthropathy lower lumbar levels. OTHER: No significant additional abnormality is seen. IMPRESSION: Interval passage of 2 to 3 mm right renal calculus into proximal ureter causing mild to m inimal right-sided hydronephrosis.
[2020-06-20] MEDS ORDERED: fentaNYL (PF) 50 MCG/ML 2 ML AMP IV STA (15:51)
[2020-06-20] MEDS ORDERED: TAMSULOSIN 0.4 MG CAP.ER.24H PO STA (15:51)
[2020-06-20] MEDS ORDERED: ORPHENADRINE 30 MG/ML 2 ML VIAL IVP STA (16:41)
[2020-06-20] MEDS ORDERED: MORPHINE SULFATE 4 MG/ML SYRINGE IVP STA (16:41)
[2020-06-20 18:27] VITALS: BP 102/60; PULSE 75; TEMP 98
== END 2020-06-20 18:26 | disposition home or self-care (01) ==
LOC: EC 12:15
DX: N20.0 Calculus of kidney (principal); F41.9 Anxiety disorder, unspecified; F17.200 Nicotine dependence, unspecified, uncomplicated; Z79.899 Other long term (current) drug therapy; Z88.1 Allergy status to other antibiotic agents; Z88.2 Allergy status to sulfonamides; Z88.5 Allergy status to narcotic agent; Z88.6 Allergy status to analgesic agent; Z88.8 Allergy status to other drugs, medicaments and biological substances; Z90.49 Acquired absence of other specified parts of digestive tract; Z90.710 Acquired absence of both cervix and uterus
CPT/HCPCS: 36415; 80053; 82150; 83690; 85025; 81001; 74018; 74176; 99285; 96374; 96375 ×4; 96376; 96361; J2270; J1200; J2360; J3010; J1885